=== PATIENT | male | born 1975 | race Caucasian/White ===

== ENCOUNTER 2025-02-23 05:20 | Inpatient (IN) | payer MEDICAID, SELFPAY ==
[2025-02-23] VITALS (27 sets, daily range): BP systolic 130–175; BP diastolic 71–118; PULSE 65–96; RESP 15–20; TEMP 35.9–37.2; O2SAT 94–100; BMI 31.3
--- NOTE | 2025-02-23 05:26 | EKG_ITS ---
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1975 Requested By: ED Temporary Provider Order Number: [id number] Reading MD: ED Temporary Provider Measurements Intervals [place] Rate: 89 P: 76 SC: 151 QRS: -49 QRSD: 107 T: 104 QT: 389 QTc: 474 Interpretive Statements SINUS RHYTHM POSSIBLE LEFT ATRIAL ENLARGEMENT [-0.1mV P-WAVE IN V1/V2] LEFT AXIS DEVIATION [QRS AXIS < -30] INCOMPLETE RIGHT BUNDLE BRANCH BLOCK [90+ ms QRS DURATION, TERMINAL R IN V1/V2, 40+ ms S IN I/aVL/V4/V5/V6] SEPTAL MYOCARDIAL INFARCTION , PROBABLY OLD [40+ ms Q WAVE IN V1/V2] ST DEVIATION AND MODERATE T-WAVE ABNORMALITY, CONSIDER LATERAL ISCHEMIA [-0.1+ mV T-WAVE IN I/aVL/V5/V6] Compared to ECG 07/29/2019 16:12:45 Left-axis deviation now present Incomplete right bundle-branch block now present Myocardial infarct finding now present Sinus tachycardia no longer present Left anterior fascicular block no longer present T-wave abnormality still present Possible ischemia still present /store/S0/[id number].pdf
--- NOTE | 2025-02-23 05:38 | PD.EDRME ---
Rapid Medical Screening Exam RME Arrival date/time: 02/23/25 05:20 Chief Complaint: Chest Pain Vital signs: Vital Signs Temperature 99.0 F 02/23/25 05:29 Pulse Rate 95 02/23/25 05:29 Respiratory Rate 17 02/23/25 05:29 Blood Pressure 130/78 02/23/25 05:29 Pulse Oximetry (%) 99 02/23/25 05:29 Oxygen Delivery Method Room Air 02/23/25 05:29 Pulse ox is 99% room air Vital signs reviewed by provider: Yes E Narrative: Patient tells me that he has had chest pain with shortness of breath that developed 3 days ago. Becoming progressively worse to a point where he could not get out of his bed and goes to the bathroom without developing shortness of breath
--- NOTE | 2025-02-23 05:40 | XR_ITS ---
Examination: PA lateral chest 2 views Technique: Upright PA lateral chest 2 views Date and time: February 23, 2025, 0545 hrs., Comparison December 05, 2020 Indications: Worsening chest pain shortness of breath over the last 3 days. Findings: No significant cardiac enlargement Mild vascular congestion. No lobar pneumonia or pulmonary edema Old fracture left clavicle Impression: No lobar pneumonia or pulmonary edema
[2025-02-23 06:07] LABS: Basophils # (Auto) 0.1 Thou/mm3 (0.0-0.2); Basophils % (Auto) 1 % (0-2.5); Eosinophils # (Auto) 0.5 Thou/mm3 (0.0-0.5); Eosinophils % (Auto) 5 % (0-10); Hematocrit 24.5 % (41.0-53.0); Immature Granulocytes Auto 0.03 Thou/mm3 (0.00-0.00); Lymphocytes # (Auto) 3.3 Thou/mm3 (1.0-4.8); Lymphocytes % (Auto) 32 % (10-50); Mean Corpuscular HGB Conc 30.6 g/dl (31.0-37.0); Mean Corpuscular Hemoglobin 26.6 pg (25.0-35.0); Mean Corpuscular Volume 87 fL (80-100); Monocytes # (Auto) 0.8 Thou/mm3 (0.0-0.8); Monocytes % (Auto) 8 % (0-12); Neutrophils # (Auto) 5.4 Thou/mm3 (1.8-7.7); Neutrophils % (Auto) 53 % (37-80); Nucleated Red Blood Cell # 0.00 Thou/mm3 (0.00-0.00); Nucleated Red Blood Cell % 0 /100 WBC (0); Platelet Count 463 Thou/mm3 (140-440); RDW Standard Deviation 48.1 fL (35.1-43.9); Red Blood Count 2.82 Miln/mm3 (4.50-5.90); White Blood Count 10.1 Thou/mm3 (3.8-10.6)
[2025-02-23 06:20] LABS: Hemoglobin 7.5 g/dL (13.5-16.0)
[2025-02-23 06:21] LABS: B-Type Natriuretic Peptide 102 pg/mL (0-100)
[2025-02-23 06:23] LABS: INR 1.0 (0.9-1.3); Partial Thromboplastin Time 25.9 Seconds (22.0-36.0); Prothrombin Time 11.1 Seconds (9.0-12.2)
[2025-02-23 06:26] LABS: Alanine Aminotransferase 22 U/L (10-49); Albumin, Serum 3.9 gm/dL (3.5-5.0); Albumin/Globulin Ratio 2.2 (1.2-2.2); Alkaline Phosphatase 96 U/L (46-116); Anion Gap 10 (7-16); Aspartate Amino Transferase 35 U/L (0-34); BUN/Creatinine Ratio 17 Ratio (12-20); Bilirubin,Total 0.4 mg/dL (0.3-1.2); Blood Urea Nitrogen 22 mg/dL (9-23); Calcium 9.0 mg/dL (8.3-10.6); Calcium (Corrected) 9.1 mg/dL (8.5-10.1); Carbon Dioxide 23.4 mMol/L (20.0-31.0); Chloride 109 mMol/L (98-107); Creatinine (Component) 1.3 mg/dL (0.6-1.3); Estimated Creatinine Clearance 73.0 mL/min (>60); Globulin 1.8 gm/dL (2.3-3.5); Glucose 132 mg/dL (74-106); LDH (Lactate Dehydrogenase) 261 U/L (120-246); Magnesium 2.2 mg/dL (1.6-2.6); Osmolality,Calculated 288 (275-295); Potassium 4.2 mMol/L (3.4-5.1); Sodium 142 mMol/L (136-145); Total Protein 5.7 gm/dL (5.7-8.2); eGFR > 60 See Note
[2025-02-23 06:27] LABS: Troponin I 0.503 ng/mL (0.0-0.045)
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
[2025-02-23 07:39] LABS: Collection Type, Urine Clean Catch
--- NOTE | 2025-02-23 07:44 | EKG_ITS ---
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1975 Requested By: Leo Cardenas Order Number: [id number] Reading MD: Leo Cardenas Measurements Intervals [place] Rate: 92 P: 63 [place]: 147 QRS: -36 QRSD: 121 T: 108 QT: 376 QTc: 466 Interpretive Statements SINUS RHYTHM LEFT AXIS DEVIATION [QRS AXIS < -30] LEFT VENTRICULAR HYPERTROPHY AND ST-T CHANGE [VOLTAGE CRITERIA PLUS ST/T ABNORMALITY] Compared to ECG 07/29/2019 16:12:45 Left-axis deviation now present Left ventricular hypertrophy now present ST (T wave) deviation now present Sinus tachycardia no longer present Left anterior fascicular block no longer present T-wave abnormality no longer present Possible ischemia no longer present /store/S0/[id number]/ecg/[id number].pdf
[2025-02-23 07:56] LABS: Bilirubin,Urine Negative (Negative); Blood,Urine Negative (Negative); Clarity,Urine Clear (Clear/Hazy); Color,Urine Lt-Yellow (Lt Yel-Yel); Culture Indicated,Urine Not Indicated; Glucose, Urine Negative (Negative); Ketones,Urine Negative (Negative); Leukocyte Esterase,Urine Negative (Negative); Nitrite,Urine Negative (Negative); PH,Urine 5.5 (5.0-7.0); Protein,Urine Trace (Neg - Trace); RBC,Urine 3 /hpf (0-3); Specific Gravity,Urine 1.031 (1.001-1.035); Squamous Epithelial Cell,Urine < 1 /hpf (0-5); Urobilinogen,Urine Negative mg/dL (0.0-1.0); WBC,Urine 1 /hpf (0-5)
[2025-02-23 08:12] LABS: Amphetamine/Methamp Scrn,U Positive (Negative); Barbiturate Screen,Urine Negative (Negative); Benzodiazepines Screen,Urine Negative (Negative); Benzoylecgonine Screen, Ur Negative (Negative); Fentanyl Screen,Urine Negative (Negative); Opiate Screen,Urine Negative (Negative); THC Screen,Urine Negative (Negative)
[2025-02-23 08:19] LABS: Ferritin 9 ng/mL (10.5-307.3); Iron 13 mcg/dL (65-175); Percent Iron Saturation 3 % (20-55); Total Iron Binding Capacity 333 mcg/dL (250-425); Unsaturated Iron Binding 320 (225-295)
--- NOTE | 2025-02-23 08:40 | PC.NURSE ---
SPOKE TO HECTOR JIMENEZ FOR SBAR REPORT; PER HECTOR JIMENEZ, WILL CALL YOU BACK. UNABLE TO GIVE SBAR REPORT AT THIS TIME.
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
--- NOTE | 2025-02-23 09:44 | PC.NURSE ---
Per Dr. gomez pt. can be on clear liquids. I will enter order. For blood transfusion order, there are three units ordered. Dr. Landin orders give 2 units first, hold third unit. I will enter order for this.
[2025-02-23 10:07] LABS: Folate > 24.00 ng/mL (>5.38); Vitamin B12 464 pg/mL (211-911)
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
--- NOTE | 2025-02-23 10:14 | PC.NURSE ---
pt. wants to review blood transfusion education pamphlet and then will agree or disagree to transfusion.
--- NOTE | 2025-02-23 13:06 | PC.NURSE ---
Per Dr. Ramirez hold LR until blood transfusion is complete.
--- NOTE | 2025-02-23 13:31 | ECHO_ITS ---
Transthoracic Echo Report Ht (in): 67 Wt (lb): 200 Exam Location: [id number] Status: Inpatient Strike Planning Applications: Lori Julien Indications: Procedure Performed: BP: 136 / 79 HR: 84 MEASUREMENTS (Male / Female) Normal Values 2D ECHO LV Diastolic Diameter PLAX 4.4 cm 4.2 - 5.9 / 3.9 - 5.3 cm LV Systolic Diameter PLAX 3.2 cm IVS Diastolic Thickness 1.2 cm 0.6 - 1.0 / 0.6 - 0.9 cm LVPW Diastolic Thickness 1.3 cm 0.6 - 1.0 / 0.6 - 0.9 cm LV Relative Wall Thickness 0.6 LVOT Diameter 1.8 cm LV Ejection Fraction MOD 2C 43.9 % LV Cardiac Index MOD 2C 2212.3 cm?/min?m? LV Ejection Fraction 2C AL 41.6 % LV Cardiac Index 2C AL 2089.2 cm?/min?m? LA Volume Index 34.3 cm?/m? 16 - 28 cm?/m? M-MODE AV Cusp Separation MM 1.4 cm DOPPLER AV Peak Velocity 147.0 cm/s AV Peak Gradient 8.6 mmHg AV Mean Gradient 6.0 mmHg AV Velocity Time Integral 25.5 cm LVOT Peak Velocity 140.0 cm/s LVOT Peak Gradient 7.8 mmHg LVOT Velocity Time Integral 23.8 cm LVOT Cardiac Index 2559.4 cm?/min?m? AV Area Cont Eq vti 2.5 cm? AV Area Cont Eq pk 2.6 cm? MV Area PHT 5.6 cm? Mitral E Point Velocity 112.0 cm/s Mitral A Point Velocity 69.4 cm/s Mitral E to A Ratio 1.6 LV E' Lateral Velocity 12.0 cm/s Mitral E to LV E' Lateral Ratio 9.3 LV E' Septal Velocity 6.6 cm/s Mitral E to LV E' Septal Ratio 16.9 TR Peak Velocity 156.5 cm/s TR Peak Gradient 9.8 mmHg PV Peak Velocity 89.6 cm/s PV Peak Gradient 3.2 mmHg FINDINGS Left Ventricle Mild LVH. Normal left ventricular size. Normal left ventricular diastolic filling pattern for age. The ejection fraction is visually estimated at 50-55%. Right Ventricle The right ventricle is normal in size and systolic function. Left Atrium The left atrium is normal by two-dimensional, color flow and Doppler imaging with no structural abnormalities, no thrombus formation present. Right Atrium The right atrium is normal by two-dimensional imaging, color flow and Doppler imaging with no structural abnormalities, no thrombus formation present. Atrial Septum The interatrial septum appears normal with no evidence of a shunt. Aorta The aorta is normal by two-dimensional, color flow and Doppler interrogation. Mitral Valve The mitral valve is normal by two-dimensional, color flow and Doppler interrogation. Trace to mild mitral regurgitation. Aortic Valve The aortic valve is trileaflet and normal by two-dimensional, color flow and Doppler interrogation. There is no significant aortic valve regurgitation. Tricuspid Valve The tricuspid valve is normal by two-dimensional, color flow and Doppler interrogation. There is trace tricuspid valve regurgitation. Pulmonic Valve The pulmonic valve is not well visualized. There is no significant pulmonic valve regurgitation. Vessels The pulmonary artery appears normal. The inferior vena cava pulmonary and hepatic veins appear normal. Pericardium The pericardium is normal by two-dimensional imaging. There is no significant pericardial effusion. CONCLUSIONS Indication: chest pain elevated troponins Mild LVH. Normal size and function. Ef estimated 50-55% The right ventricle is normal in size and systolic function. Trace mitral and trace tricuspid regurgitation noted. No significant change since the prior study of 12/05/2020 Angi Lofton (Electronically Signed) Final Date: 24 February 2025 14:28
[2025-02-23 14:29] LABS: Troponin I 0.562 ng/mL (0.0-0.045)
[2025-02-23] MEDS: RINGERS LACTATED 1000 ML 1,000 ML 85 ML IV (16:12)
[2025-02-23 16:42] LABS: Hematocrit 30.0 % (41.0-53.0); Hemoglobin 9.6 g/dL (13.5-16.0)
--- NOTE | 2025-02-23 16:44 | PC.NURSE ---
Dr. Ramirez states we will restart meds once pt. is no longer NPO. pt. asking about home meds and concerned as to why he is not receiving them. Pt. educated that he is NPO for procedure and meds will be resumed after EGD.
--- NOTE | 2025-02-23 16:45 | PC.NURSE ---
Dr. Ramirez aware of recent BP 147/77 and as high as 158/98. states I am okay with this pressure for now.
--- NOTE | 2025-02-23 18:10 | PC.NURSE ---
Called to Dr. Ramirez to confirm that Dr. Barrientos aware of consult and plans for EGD. Dr. Sauceda covering and states yes but I will contact Dr. Ramirez and confirm. Pt. is hungry and wanting to eat. Called to Endo department to enquire time of EGD but no answer.
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
[2025-02-23] MEDS: SODIUM CHLORIDE 0.9% 500 ML 500 ML 20 ML IV (20:35)
[2025-02-23 23:02] LABS: Troponin I 0.717 ng/mL (0.0-0.045)
[2025-02-24] VITALS (21 sets, daily range): BP systolic 128–176; BP diastolic 79–121; PULSE 62–143; RESP 10–97; TEMP 36.2–37.2; O2SAT 96–100; BMI 31.3
[2025-02-24] MEDS: NA SU/NAHCO3/KC/PEG (Golytely) 4,000 ML BTL 4000 ML PO (01:25)
--- NOTE | 2025-02-24 02:36 | PC.NURSE ---
[facility]25 from 0200 to 0235.
[2025-02-24] MEDS: RINGERS LACTATED 1000 ML 1,000 ML 85 ML IV (05:14)
[2025-02-24 06:00] LABS: Basophils # (Auto) 0.1 Thou/mm3 (0.0-0.2); Basophils % (Auto) 1 % (0-2.5); Eosinophils # (Auto) 0.8 Thou/mm3 (0.0-0.5); Eosinophils % (Auto) 9 % (0-10); Hematocrit 29.4 % (41.0-53.0); Hemoglobin 9.4 g/dL (13.5-16.0); Immature Granulocytes Auto 0.03 Thou/mm3 (0.00-0.00); Lymphocytes # (Auto) 2.5 Thou/mm3 (1.0-4.8); Lymphocytes % (Auto) 30 % (10-50); Mean Corpuscular HGB Conc 32.0 g/dl (31.0-37.0); Mean Corpuscular Hemoglobin 27.8 pg (25.0-35.0); Mean Corpuscular Volume 87 fL (80-100); Monocytes # (Auto) 0.8 Thou/mm3 (0.0-0.8); Monocytes % (Auto) 9 % (0-12); Neutrophils # (Auto) 4.3 Thou/mm3 (1.8-7.7); Neutrophils % (Auto) 51 % (37-80); Nucleated Red Blood Cell # 0.00 Thou/mm3 (0.00-0.00); Nucleated Red Blood Cell % 0 /100 WBC (0); Platelet Count 377 Thou/mm3 (140-440); RDW Standard Deviation 46.6 fL (35.1-43.9); Red Blood Count 3.38 Miln/mm3 (4.50-5.90); White Blood Count 8.5 Thou/mm3 (3.8-10.6)
[2025-02-24 06:40] LABS: Alanine Aminotransferase 18 U/L (10-49); Albumin, Serum 3.5 gm/dL (3.5-5.0); Albumin/Globulin Ratio 2.1 (1.2-2.2); Alkaline Phosphatase 93 U/L (46-116); Anion Gap 7 (7-16); Aspartate Amino Transferase 25 U/L (0-34); BUN/Creatinine Ratio 9 Ratio (12-20); Bilirubin,Total 0.9 mg/dL (0.3-1.2); Blood Urea Nitrogen 11 mg/dL (9-23); Calcium 8.5 mg/dL (8.3-10.6); Calcium (Corrected) 8.9 mg/dL (8.5-10.1); Carbon Dioxide 24.6 mMol/L (20.0-31.0); Chloride 108 mMol/L (98-107); Creatinine (Component) 1.2 mg/dL (0.6-1.3); Estimated Creatinine Clearance 79.1 mL/min (>60); Globulin 1.7 gm/dL (2.3-3.5); Glucose 196 mg/dL (74-106); Magnesium 2.0 mg/dL (1.6-2.6); Osmolality,Calculated 283 (275-295); Phosphorous 2.4 mg/dL (2.4-5.1); Potassium 4.2 mMol/L (3.4-5.1); Sodium 140 mMol/L (136-145); Total Protein 5.2 gm/dL (5.7-8.2); eGFR > 60 See Note
[2025-02-24 06:43] LABS: Troponin I 0.742 ng/mL (0.0-0.045)
--- NOTE | 2025-02-24 08:03 | ESPR_ITS ---
<Statement entered by Carlos Carvalho MD - 02/24/25 14:36> I saw and examined patient personally and supervised PGY 1 resident, Dr. Najera with formulating a management plan. I agree with the documentation with the exceptions as listed below. Mr. Almazan is a 49 year old gentleman with a history of CAD s/p stent x7, HTN, HLD, meth use disorder, who presents with cc of chest pain/pressure and dyspnea on exertion that limits his daily activities with symptomatic anemia, undergoing 2 unit prbc transfusion and admitted for ACS rule out NM and GI bleed for investigation. Problem list: 1. Acute blood loss anemia secondary to GI bleed for investigation s/p 2 unit PRBC infusion 2. NSTEMI type I 3. Stable angina 4. CAD s/p stents x 7 5. Primary hypertension 6. Hyperlipidemia 7. Methamphetamine use disorder Patient initially presented with chest pain and was incidentally found to have a Hb of 7.5 on admission. With regards to his chest pain his troponins were elevated 0.503 on admission, peaked at 0.742 now down trended to 0.637. Currently cardiology is awaiting results of colonoscopy which is planned for today before proceeding with cardiac catheterization. Tentatively scheduled for 02/26/2025. Since patient is currently undergoing bowel prep, placed labetalol 10 mg IV as needed for SBP >180. Also started on nitroglycerin SL as needed for angina. Patient's baseline Hb was between 13?14 from chart review. On admission Hb was 7.5 and patient received 2 units PRBCs after which stabilized at 9.4 today. Patient underwent EGD 02/06 which was negative for any clear source of hemorrhage. Currently undergoing bowel prep for colonoscopy today. Plan of care discussed with Attending Dr. Loretta Carvalho MD PGY 2 Disclaimer: This note was dictated by speech recognition. Minor errors in production line operator may be present due to voice recognition software. Documentation for date of: 02/24/25 Subjective Subjective Interval history: Mr. Almazan is a 49 year old gentleman with a history of CAD s/p stent x7, HTN, HLD, meth use disorder, who presents with cc of chest pain/pressure and dyspnea on exertion, found to have hgb of 7.5 and type II NSTEMI, admitted for GI bleed workup and blood transfusion. Cardiology was consulted for elevated troponins, felt this elevation was likely secondary to symptomatic anemia. The patient was transfused with 2 units PRBCs, and hgb improved to 9.6. EGD was negative for acute bleed, only showed some mild erythematous inflammation of the gastric antrum. 02/24 NAOE. Telemtry notable for bradycardia at 48 overnight. Patient states he feels asymptomatic currently as he lays in bed, but as soon as he walks to the bathroom, he feels chest tightness and pressure. He denies having ever done a screening colonoscopy in the past. VSS, Hgb stable at 9.4 s/p 2 units PRBCs. Troponins increased from 0.717 ---> 0.742. Plan for colonoscopy first, then angiogram after GI workup. On Golytely and CLD. Exam Vital Signs Temp Pulse Resp BP Pulse Ox O2 Del Method 97.9 F 87 16 136/79 H 96 Room Air 02/24/25 04:00 02/24/25 04:00 02/24/25 04:00 02/24/25 04:00 02/24/25 04:00 02/24/25 04:00 Narrative Exam General: patient appears stated age, sitting up in bed, moves spryly, no acute distress, HEENT: Mucosa moist. Pupils are equal Cardiovascular: Extremities warm and well perfused, regular rate and rhythm, ECHO visualized during exam, no gross hypokinesis appreciated. Respiratory: Clear to auscultation bilaterally without wheezes or crackles. Abdomen: Soft, nontender, not distended, Skin: Dry, no rashes or bruising Musculoskeletal: No gross injuries. Able to move all 4 extremities. Non edematous lower extremities. Neuro: Alert and oriented x3. No focal neuro deficits. Psych: Normal affect and mood Objective Labs 02/24/25 05:34 02/24/25 05:34 Labs: Laboratory Results - last 24 hr 02/23/25 02/23/25 02/23/25 05:59 07:30 08:16 WBC RBC Hgb Hct MCV MCH MCHC RDW Std Deviation Plt Count Neut % (Auto) Lymph % (Auto) [place] % (Auto) Eos % (Auto) Baso % (Auto) Neut # (Auto) Lymph # (Auto) [place] # (Auto) Eos # (Auto) Baso # (Auto) Immature Gran # (Auto) Absolute Nucleated RBC Immature Gran % Nucleated RBC % Sodium Potassium Chloride Carbon Dioxide Anion Gap BUN Creatinine Estim Creat Clear Calc eGFR BUN/Creatinine Ratio Glucose Calculated Osmolality Calcium Corrected Calcium Phosphorus Magnesium Iron 13 L TIBC 333 Iron Saturation 3 L Unsat Iron Binding 320 H Ferritin 9 L Total Bilirubin AST ALT Alkaline Phosphatase Troponin I Total Protein Albumin Globulin Albumin/Globulin Ratio Vitamin B12 464 Folate > 24.00 Ur Collection Type Clean Catch Urine Color Lt-Yellow Urine Clarity Clear Urine pH 5.5 Ur Specific [place] 1.031 Urine Protein Trace Urine Glucose (UA) Negative Urine Ketones Negative Urine Blood Negative Urine Nitrite Negative Urine Bilirubin Negative Urine Urobilinogen (Auto) Negative Ur Leukocyte Esterase Negative Urine RBC 3 Urine WBC 1 Ur Squamous Epith Cells < 1 Urine Bacteria None Ur Culture Indicated? Not Indicated Urine Opiates Screen Negative Urine Fentanyl Screen Negative Ur Barbiturates Screen Negative U Amphetamin/Meth Scrn Positive A U Benzodiazepines Scrn Negative U Cocaine Metab Screen Negative U Marijuana (THC) Screen Negative Blood Type O Positive Antibody Screen NEGATIVE Crossmatch See Detail Blood Bank Wristband ID Yes 02/23/25 02/23/25 02/23/25 13:34 16:30 22:14 WBC RBC Hgb 9.6 L D Hct 30.0 L MCV MCH MCHC RDW Std Deviation Plt Count Neut % (Auto) Lymph % (Auto) [place] % (Auto) Eos % (Auto) Baso % (Auto) Neut # (Auto) Lymph # (Auto) [place] # (Auto) Eos # (Auto) Baso # (Auto) Immature Gran # (Auto) Absolute Nucleated RBC Immature Gran % Nucleated RBC % Sodium Potassium Chloride Carbon Dioxide Anion Gap BUN Creatinine Estim Creat Clear Calc eGFR BUN/Creatinine Ratio Glucose Calculated Osmolality Calcium Corrected Calcium Phosphorus Magnesium Iron TIBC Iron Saturation Unsat Iron Binding Ferritin Total Bilirubin AST ALT Alkaline Phosphatase Troponin I 0.562 H* 0.717 H* Total Protein Albumin Globulin Albumin/Globulin Ratio Vitamin B12 Folate Ur Collection Type Urine Color Urine Clarity Urine pH Ur Specific [place] Urine Protein Urine Glucose (UA) Urine Ketones Urine Blood Urine Nitrite Urine Bilirubin Urine Urobilinogen (Auto) Ur Leukocyte Esterase Urine RBC Urine WBC Ur Squamous Epith Cells Urine Bacteria Ur Culture Indicated? Urine Opiates Screen Urine Fentanyl Screen Ur Barbiturates Screen U Amphetamin/Meth Scrn U Benzodiazepines Scrn U Cocaine Metab Screen U Marijuana (THC) Screen Blood Type Antibody Screen Crossmatch Blood Bank Wristband ID 02/24/25 05:34 WBC 8.5 RBC 3.38 L Hgb 9.4 L Hct 29.4 L MCV 87 MCH 27.8 MCHC 32.0 RDW Std Deviation 46.6 H Plt Count 377 D Neut % (Auto) 51 Lymph % (Auto) 30 [place] % (Auto) 9 Eos % (Auto) 9 Baso % (Auto) 1 Neut # (Auto) 4.3 Lymph # (Auto) 2.5 [place] # (Auto) 0.8 Eos # (Auto) 0.8 H Baso # (Auto) 0.1 Immature Gran # (Auto) 0.03 H Absolute Nucleated RBC 0.00 Immature Gran % 0 Nucleated RBC % 0 Sodium 140 Potassium 4.2 Chloride 108 H Carbon Dioxide 24.6 Anion Gap 7 BUN 11 Creatinine 1.2 Estim Creat Clear Calc 79.1 eGFR > 60 BUN/Creatinine Ratio 9 L Glucose 196 H D Calculated Osmolality 283 Calcium 8.5 Corrected Calcium 8.9 Phosphorus 2.4 Magnesium 2.0 Iron TIBC Iron Saturation Unsat Iron Binding Ferritin Total Bilirubin 0.9 D AST 25 ALT 18 Alkaline Phosphatase 93 Troponin I 0.742 H* Total Protein 5.2 L Albumin 3.5 Globulin 1.7 L Albumin/Globulin Ratio 2.1 Vitamin B12 Folate Ur Collection Type Urine Color Urine Clarity Urine pH Ur Specific [place] Urine Protein Urine Glucose (UA) Urine Ketones Urine Blood Urine Nitrite Urine Bilirubin Urine Urobilinogen (Auto) Ur Leukocyte Esterase Urine RBC Urine WBC Ur Squamous Epith Cells Urine Bacteria Ur Culture Indicated? Urine Opiates Screen Urine Fentanyl Screen Ur Barbiturates Screen U Amphetamin/Meth Scrn U Benzodiazepines Scrn U Cocaine Metab Screen U Marijuana (THC) Screen Blood Type Antibody Screen Crossmatch Blood Bank Wristband ID Quality Measures Quality Measures VTE prophylaxis Assessment & Plan Assessment Current Active Medications: Generic Name Dose Route Start Last Admin Trade Name Freq PRN Reason Stop Dose Admin Acetaminophen 650 mg 02/23/25 09:33 Acetaminophen 325 Mg Tablet PO 03/25/25 09:32 Q6H PRN Fever >101.5 Acetaminophen 650 mg 02/23/25 09:33 Acetaminophen 325 Mg Tablet PO 03/25/25 09:32 Q6H PRN PAIN SCALE 1-3 (mild Dextrose 25 ml 02/24/25 07:06 Dextrose 50%-Water Inj 50 Ml Syringe IV 03/26/25 07:05 Q15MIN PRN BG 50-70 responsive npo pt Dextrose 50 ml 02/24/25 07:06 Dextrose 50%-Water Inj 50 Ml Syringe IV 03/26/25 07:05 Q15MIN PRN BG <50 OR BG <70 & pt unresponsive Glucagon 1 mg 02/24/25 07:06 Glucagon Inj 1 Mg Vial IM Q15MIN PRN BG <70, and no IV access Lactated Ringer's 1,000 mls @ 85 mls/hr 02/23/25 12:36 02/24/25 05:14 Lactated Ringers IV 02/24/25 12:07 85 mls/hr .[id number] COLTON Administration Insulin Human Lispro 0 unit 02/24/25 12:00 Insulin Lispro (Admelog) 1 Unit/0.01 Ml Unit SC 03/26/25 11:59 Q6HR COLTON Protocol Metoprolol Succinate 50 mg 02/24/25 09:00 Metoprolol Succinate Xl 25 Mg Tabcr PO 03/26/25 08:59 QDAY COLTON Morphine Sulfate 1 mg 02/23/25 13:15 Morphine Sulf Inj 4 Mg/Ml Vial IVP 02/28/25 13:14 Q4HR PRN PAIN SCALE 4-10(Mod-Sev Ondansetron HCl 4 mg 02/23/25 09:33 Ondansetron Inj 2 Mg/Ml Inj 2 Ml IVP 03/25/25 09:32 Q6H PRN NAUSEA OR VOMITING Protocol Pantoprazole Sodium 40 mg 02/23/25 21:00 02/23/25 21:47 Pantoprazole Inj 40 Mg Vial IVP 03/25/25 20:59 40 mg BID COLTON Administration Plan Mr. Almazan is a 49 year old gentleman with a history of CAD s/p stent x7, HTN, HLD, meth use disorder, who presents with cc of chest pain/pressure and dyspnea on exertion that limits his daily activities with symptomatic anemia, undergoing 2 unit prbc transfusion and admitted for GI workup for possible upper gi bleed. Acute Blood Loss Anemia Anemia 2/2 ?lower GI bleed pt has a baseling hgb 14, but presented with hgb 7.5. no melena, no hematochezia, or hematemesis. FOBT positive, EGD negative for acute bleed. Hgb stable at 9.4 after 2Units PRBCs PLAN - GI consulted appreciate recs -Plan on colonoscopy, on golytely currently - Hgb goal>8 - transfuse if hgb <8 - post transfusion h and h - IVF LR 85 cc/hr - APAP prn for mild pain - Morphine 1 mg iv q4hr prn - pantoprazole 40 mg iv BID CAD s/p stents x7 NSTEMI Type I Stable Angina EKG with st depressions and chest pain with concern for stable vs unstable angina pt reports chest pressure and dyspnea on exertion, possible that his symptoms are 2/2 symptomatic anemia. However he is still experiencing anginal symptoms with exertion, possibly due to myocardial ischemia. PLAN - CARDS consulted, appreciate recs - plan for cardiac cath following GI workup, colonoscopy first. - hold ASA 81 - hold plavix - Pending TTE Results - troponin q8hr 0.503-->0.562--> 0.717 --> 0.742 Methamphetamine use disorder pt has history of meth use, and most recent use was 4 days agp - monitor for withdrawal - couseling on cessation HTN -home lisinopril 40 mg po qd, holding for now -home metoprolol 50 mg po qd -PRN labetolol for SBP > 180 HLD - home atorvastatin 80 mg po qhs, holding for now. Health Maintenance: DVT prophylaxis: SCDs Diet: CLD Rocha: No Lines: PIV CODE STATUS: Full code Disposition: Pending Colonoscopy and coronary angiogram. Patient's plan and care discussed with my attending, Dr. Burgos and my senior Dr. Deven Najera DO PGY-1 ([facility] Resident) Attending Provider Attestation/Addendum Sharmaine Trejo DO, attest that I was physically present for the salazar portions of the service and evaluated the patient with the resident and I reviewed and discussed the case with the resident and agree with the resident's findings and plans of care as documented above Patient seen and evaluated this AM. He states he has been feeling well following 2 units of pRBCs. Patient continues to have chest discomfort and shortness of breath with exertion. EGD was unremarkable and does not show any active bleeding. Patient currently undergoing colon prep. He continues to drink Golytely. Will f/u with colonoscopy results. tentatively scheduled for cardiac cath on Saturday.
--- NOTE | 2025-02-24 08:48 | PC.SS ---
SS follow up note; Cathlab today with Dr. Deleon.
[2025-02-24 08:55] LABS: Glucose Estimated Average 111 mg/dL (80-131); Hemoglobin A1C 5.5 % Hgb (4.8-6.0)
--- NOTE | 2025-02-24 09:05 | PC.SS ---
Patient Gutierrez Almazan is a 49 Year old male admitted for Chest Pain, GI Bleed. SS conducted an initial assessment to verify demographic information and discharge plan. Patient reports he lives at home with family. Patient reports his daughter, Sophie Almazan is his surrogate decision maker, [phone]. Patient is able to complete all ADL's independently and does not utilize any source of DME. Choice of pharmacy is [facility]. PCP is Yoni Cardenas. Patient will discharge home when medically cleared. Discharge plan: Home Next of Kin: Daughter, Sophie Almazan
[2025-02-24] MEDS: METOPROLOL SUCCINATE XL 25 MG TABCR 50 MG PO (09:13)
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
[2025-02-24 13:46] LABS: Troponin I 0.637 ng/mL (0.0-0.045)
--- NOTE | 2025-02-24 16:07 | PC.NURSE ---
Notified MD of patient's BP of 153/100, per MD he will review patient's condition and history prior to ordering additional BP meds.
[2025-02-24 18:49] LABS: Troponin I 0.595 ng/mL (0.0-0.045)
--- NOTE | 2025-02-24 19:54 | PC.NURSE ---
PT TAKEN FOR COLONOSCOPY.
--- NOTE | 2025-02-24 20:50 | SUR.PHASEI ---
pt received to [facility]. vss. breathing even and unlabored. arouses only to deep stimulation. denies pain and nausea. report from nurse gusman.
--- NOTE | 2025-02-24 21:10 | SUR.PHASEI ---
report called to nurse hipolito. vss. breathing even and unlabored. denies pain and nausea. tolerated po juice. pt states he needs to poop. encouraged to pass gas. transported to room via gurney.
--- NOTE | 2025-02-24 21:23 | PC.NURSE ---
PT BACK FROM ENDO, PT AWAKE AND ORIENTED X4, SLEEPY. PT DENIES PAIN, PASSING GAS AND LAYING ON LEFT SIDE. CALL LIGHT WITHIN REACH.
[2025-02-25] VITALS (29 sets, daily range): BP systolic 123–191; BP diastolic 66–121; PULSE 66–94; RESP 12–98; TEMP 36.1–37.1; O2SAT 96–100; BMI 31.4
[2025-02-25] MEDS: INSULIN LISPRO (AdmeLOG) 1 UNIT/0.01 ML UNIT SC (00:11)
[2025-02-25] MEDS: LABETALOL INJ 5 MG/ML VIAL 20 ML 10 MG IVP ×2 (04:52→12:42)
[2025-02-25 05:23] LABS: Basophils # (Auto) 0.1 Thou/mm3 (0.0-0.2); Basophils % (Auto) 1 % (0-2.5); Eosinophils # (Auto) 0.7 Thou/mm3 (0.0-0.5); Eosinophils % (Auto) 8 % (0-10); Hematocrit 33.5 % (41.0-53.0); Hemoglobin 10.5 g/dL (13.5-16.0); Immature Granulocytes Auto 0.04 Thou/mm3 (0.00-0.00); Lymphocytes # (Auto) 2.1 Thou/mm3 (1.0-4.8); Lymphocytes % (Auto) 24 % (10-50); Mean Corpuscular HGB Conc 31.3 g/dl (31.0-37.0); Mean Corpuscular Hemoglobin 27.0 pg (25.0-35.0); Mean Corpuscular Volume 86 fL (80-100); Monocytes # (Auto) 0.8 Thou/mm3 (0.0-0.8); Monocytes % (Auto) 9 % (0-12); Neutrophils # (Auto) 5.0 Thou/mm3 (1.8-7.7); Neutrophils % (Auto) 57 % (37-80); Nucleated Red Blood Cell # 0.00 Thou/mm3 (0.00-0.00); Nucleated Red Blood Cell % 0 /100 WBC (0); Platelet Count 442 Thou/mm3 (140-440); RDW Standard Deviation 47.0 fL (35.1-43.9); Red Blood Count 3.89 Miln/mm3 (4.50-5.90); White Blood Count 8.8 Thou/mm3 (3.8-10.6)
[2025-02-25 05:52] LABS: Alanine Aminotransferase 18 U/L (10-49); Albumin, Serum 4.0 gm/dL (3.5-5.0); Albumin/Globulin Ratio 2.1 (1.2-2.2); Alkaline Phosphatase 102 U/L (46-116); Anion Gap 8 (7-16); Aspartate Amino Transferase 21 U/L (0-34); BUN/Creatinine Ratio 7 Ratio (12-20); Bilirubin,Total 0.8 mg/dL (0.3-1.2); Blood Urea Nitrogen 7 mg/dL (9-23); Calcium 8.8 mg/dL (8.3-10.6); Calcium (Corrected) 8.8 mg/dL (8.5-10.1); Carbon Dioxide 26.8 mMol/L (20.0-31.0); Chloride 107 mMol/L (98-107); Creatinine (Component) 1.0 mg/dL (0.6-1.3); Estimated Creatinine Clearance 94.9 mL/min (>60); Globulin 1.9 gm/dL (2.3-3.5); Glucose 102 mg/dL (74-106); Magnesium 1.9 mg/dL (1.6-2.6); Osmolality,Calculated 281 (275-295); Phosphorous 3.1 mg/dL (2.4-5.1); Potassium 4.3 mMol/L (3.4-5.1); Sodium 142 mMol/L (136-145); Total Protein 5.9 gm/dL (5.7-8.2); eGFR > 60 See Note
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
--- NOTE | 2025-02-25 09:59 | ESPR_ITS ---
Documentation for date of: 02/25/25 No overnight events. Patient now s/p colonoscopy which was noted for internal hemorroids which may have contributed to acute blood loss anemia upon admission. Patient take to cath, stenosis noted on ramus intermedius proximal segment of 90% s/p PCI w/ stent, now total of 8 stents with this procedure and previous procedures. Patient loaded with Aspirin and Plavix. Continue Aspirin and Plavix. Continue BID Protonix. Plan to discharge within the next 24 hours. - The patient's plan was discussed with attending Dr. Loretta Samaniego MD PGY2 Internal Medicine Subjective Subjective Interval history: Mr. Almazan is a 49 year old gentleman with a history of CAD s/p stent x7, HTN, HLD, meth use disorder, who presents with cc of chest pain/pressure and dyspnea on exertion, found to have hgb of 7.5 and type II NSTEMI, admitted for GI bleed workup and blood transfusion. Cardiology was consulted for elevated troponins, felt this elevation was likely secondary to symptomatic anemia. The patient was transfused with 2 units PRBCs, and hgb improved to 9.6. EGD was negative for acute bleed, only showed some mild erythematous inflammation of the gastric antrum. 02/24 NAOE. Telemtry notable for bradycardia at 48 overnight. Patient states he feels asymptomatic currently as he lays in bed, but as soon as he walks to the bathroom, he feels chest tightness and pressure. He denies having ever done a screening colonoscopy in the past. VSS, Hgb stable at 9.4 s/p 2 units PRBCs. Troponins increased from 0.717 ---> 0.742. Plan for colonoscopy first, then angiogram after GI workup. On Golytely and CLD. 02/25 Patient examined at bedside, no acute overnight events. Colonoscopy yesterday was notable for internal hemorrhoid. Hgb remained stable at 10.4 without needing additional blood transfusions. His troponins downtrended yesterday from 0.742 to 0.595. Patient received cardiac cath with had a new stent placed, this is his 8th stent. Aspirin and plavix started by cardiology. Will observe overnight, likely discharge tomorrow. Exam Vital Signs Temp Pulse Resp BP Pulse Ox O2 Del Method O2 Flow Rate 98.8 F 66 12 176/100 H 100 Room Air 3 02/25/25 09:50 02/25/25 09:50 02/25/25 09:50 02/25/25 09:50 02/25/25 09:50 02/25/25 09:50 02/24/25 20:40 Narrative Exam General: Middle aged patient, no acute distress, sitting comfortably and conversational. HEENT: No JVD noted. Mucosa moist. Pupils are equal Cardiovascular: Normal S1 and S2. Regular rate and rhythm. Systolic flow murmur appreciated. Respiratory: Clear to auscultation bilaterally without wheezes or crackles. Abdomen: Soft, nontender, not distended, Skin: Dry, no rashes or bruising Musculoskeletal: No gross injuries. Able to move all 4 extremities. Non edematous lower extremities. Right radial bandage is in place without saturation or bleeding. Neuro: Alert and oriented x3. No focal neuro deficits. Psych: Normal affect and mood Objective Labs 02/26/25 06:30 02/26/25 06:30 Labs: Laboratory Results - last 24 hr 02/24/25 02/24/25 02/25/25 12:46 17:46 04:34 WBC 8.8 RBC 3.89 L Hgb 10.5 L Hct 33.5 L MCV 86 MCH 27.0 MCHC 31.3 RDW Std Deviation 47.0 H Plt Count 442 H D Neut % (Auto) 57 Lymph % (Auto) 24 [place] % (Auto) 9 Eos % (Auto) 8 Baso % (Auto) 1 Neut # (Auto) 5.0 Lymph # (Auto) 2.1 [place] # (Auto) 0.8 Eos # (Auto) 0.7 H Baso # (Auto) 0.1 Immature Gran # (Auto) 0.04 H Absolute Nucleated RBC 0.00 Immature Gran % 1 H Nucleated RBC % 0 Sodium 142 Potassium 4.3 Chloride 107 Carbon Dioxide 26.8 Anion Gap 8 BUN 7 L Creatinine 1.0 Estim Creat Clear Calc 94.9 eGFR > 60 BUN/Creatinine Ratio 7 L Glucose 102 D Calculated Osmolality 281 Calcium 8.8 Corrected Calcium 8.8 Phosphorus 3.1 Magnesium 1.9 Total Bilirubin 0.8 AST 21 ALT 18 Alkaline Phosphatase 102 Troponin I 0.637 H* 0.595 H* Total Protein 5.9 Albumin 4.0 D Globulin 1.9 L Albumin/Globulin Ratio 2.1 Quality Measures Quality Measures VTE prophylaxis Assessment & Plan Assessment Current Active Medications: Generic Name Dose Route Start Last Admin Trade Name Freq PRN Reason Stop Dose Admin Acetaminophen 650 mg 02/23/25 09:33 Acetaminophen 325 Mg Tablet PO 03/25/25 09:32 Q6H PRN Fever >101.5 Acetaminophen 650 mg 02/23/25 09:33 Acetaminophen 325 Mg Tablet PO 03/25/25 09:32 Q6H PRN PAIN SCALE 1-3 (mild Dextrose 25 ml 02/24/25 07:06 Dextrose 50%-Water Inj 50 Ml Syringe IV 03/26/25 07:05 Q15MIN PRN BG 50-70 responsive npo pt Dextrose 50 ml 02/24/25 07:06 Dextrose 50%-Water Inj 50 Ml Syringe IV 03/26/25 07:05 Q15MIN PRN BG <50 OR BG <70 & pt unresponsive Glucagon 1 mg 02/24/25 07:06 Glucagon Inj 1 Mg Vial IM Q15MIN PRN BG <70, and no IV access Insulin Human Lispro 0 unit 02/24/25 12:00 02/25/25 05:08 Insulin Lispro (Admelog) 1 Unit/0.01 Ml Unit SC 03/26/25 11:59 Not Given Q6HR [facility] Protocol Labetalol HCl 10 mg 02/24/25 11:31 02/25/25 04:52 Labetalol Inj 5 Mg/Ml Vial 20 Ml IVP 10 mg Q10MIN PRN Administration SBP > 180 Lisinopril 40 mg 02/25/25 09:00 Lisinopril 20 Mg Tablet PO 03/27/25 08:59 QDAY [facility] Metoprolol Succinate 50 mg 02/24/25 09:00 02/24/25 09:13 Metoprolol Succinate Xl 25 Mg Tabcr PO 03/26/25 08:59 50 mg QDAY [facility] Administration Morphine Sulfate 1 mg 02/23/25 13:15 Morphine Sulf Inj 4 Mg/Ml Vial IVP 02/28/25 13:14 Q4HR PRN PAIN SCALE 4-10(Mod-Sev Nitroglycerin 0.4 mg 02/24/25 14:33 Nitroglycerin 0.4 Mg Subl Btl #25 SL Q5MIN PRN CHEST PAIN Ondansetron HCl 4 mg 02/23/25 09:33 Ondansetron Inj 2 Mg/Ml Inj 2 Ml IVP 03/25/25 09:32 Q6H PRN NAUSEA OR VOMITING Protocol Pantoprazole Sodium 40 mg 02/23/25 21:00 02/24/25 21:30 Pantoprazole Inj 40 Mg Vial IVP 03/25/25 20:59 40 mg BID COLTON Administration Plan Mr. Almazan is a 49 year old gentleman with a history of CAD s/p stent x7, HTN, HLD, meth use disorder, who presents with cc of chest pain/pressure and dyspnea on exertion that limits his daily activities with symptomatic anemia, undergoing 2 unit prbc transfusion and admitted for GI workup for possible upper gi bleed. Acute Blood Loss Anemia Anemia 2/2 lower GI bleed - Resolved internal hemorrhoid pt has a baseling hgb 14, but presented with hgb 7.5. no melena, no hematochezia, or hematemesis. FOBT positive, EGD negative for acute bleed. Hgb stable at 9.4 after 2Units PRBCs Colonoscopy notable for internal hemorrhoid. Hgb remains stable at 10.5 PLAN - GI consulted appreciate recs - Hgb goal>8 - transfuse if hgb <8 - APAP prn for mild pain - Morphine 1 mg iv q4hr prn - pantoprazole 40 mg iv BID CAD s/p stents x7 + 1 on 02/25 NSTEMI Type I Stable Angina EKG with st depressions and chest pain with concern for stable vs unstable angina pt reports chest pressure and dyspnea on exertion, possible that his symptoms are 2/2 symptomatic anemia. However he is still experiencing anginal symptoms with exertion, possibly due to myocardial ischemia. TTE showed EF 50-55%, mild LVH, Normal size and function of left ventricle. No significant change from ECHO done in 2020. Coronary angiogram done today demonstrated 75% stenosis and stent was placed. Patient was restarted on aspirin and plavix. Per discussion with cardiology, patient will likely be ready for discharge tomorrow from a cardiology standpoint. PLAN - CARDS consulted, appreciate recs - cardiac cath done pending final results. - troponin q8hr Now downtrending, 0.503-->0.562--> 0.717 --> 0.742--> 0.637 --> 0.595 - Observation overnight -Continue aspirin and plavix. Methamphetamine use disorder pt has history of meth use, and most recent use was 4 days agp - monitor for withdrawal - couseling on cessation HTN Progressively more hypertensive during his stay. -home lisinopril 40 mg po qd, started. -home metoprolol 50 mg po qd -PRN labetolol for SBP > 180 HLD - home atorvastatin 80 mg po qhs, holding for now. Health Maintenance: DVT prophylaxis: SCDs Diet: Cardiac diet Rocha: No Lines: PIV CODE STATUS: Full code Disposition: Observation post stent placement Attending Provider Attestation/Addendum Sharmaine Trejo DO, attest that I was physically present for the salazar portions of the service and evaluated the patient with the resident and I reviewed and discussed the case with the resident and agree with the resident's findings and plans of care as documented above Patient seen and evaluated this afternoon following return to room from cardiac cath. Patient tolerated procedure well. Per nursing, patient had one stent placed in coronary ramus. Will restart DAPT. F/u with operative note. Will monitor overnight and anticipate DC within next 24h.
[2025-02-25] MEDS: hydrALAZINE INJ 20 MG/ML VIAL 10 MG IVP (10:23)
[2025-02-25 10:36] LABS: ACT (CATH LAB ONLY) 214.0 Seconds (89-169)
[2025-02-25] MEDS: METOPROLOL SUCCINATE XL 25 MG TABCR 50 MG PO (10:39)
[2025-02-25] MEDS: Magnesium Sulfate 2 GM Ivpb 2 GM/50 ML BAG IV (10:40)
--- NOTE | 2025-02-25 16:23 | ESOP_ITS ---
RE: MERRITT ENCINAS : 1975 PROCEDURES PERFORMED: 1. Emergency diagnostic left heart cardiac catheterization, selective coronary angiogram, left ventricular angiogram, CPT 72466. 2. Emergency PCI, primary angioplasty, stent placement of the ramus intermedius, placement of drug-eluting stent 3.0 x 12 mm Synergy stent with diagnosis of acute sjh-EO-xkigndj elevation myocardial infarction, CPT 08591. 3. Ultrasound-guided access of right radial artery. 4. Conscious sedation for 1 hour duration. DIAGNOSES: 1. Coronary artery disease. 2. Acute phq-OK-hgzgdtx elevation myocardial infarction. 3. History of multivessel stent placement. HISTORY AND INDICATIONS: The patient is a 49-year-old male with history of CAD, status post multivessel stent placement, total 7 stents placed in various arteries of ramus intermedius, circumflex and LAD, doing well until recently. Last 2 weeks had progressive shortness of breath, chest tightness on minimal exertion. He came to the hospital with severe chest pain, shortness of breath, and bilateral arm discomfort and was found to have acute myocardial infarction based on 0.7 troponin levels. He also had anemia, possible bleeding and GI workup showed that there is no active bleeding. The patient had hemorrhoids most likely because of bleeding and no gastric ulcer. The patient was recommended to proceed with PCI and coronary angiogram since the patient does not have any active bleeding. Hemoglobin remains stable. DESCRIPTION OF PROCEDURE: The patient was brought to the cardiac catheterization laboratory. He was given 2 mg of Versed and 100 mcg of fentanyl for conscious sedation. Ultrasound-guided access was used to perform radial access. Radial access performed radial artery puncture with micropuncture technique and 6-[place]err[place]ian Glidesheath was introduced. Selective right and left coronary angiogram, left heart catheterization, left ventricular angiogram were performed by TIG-4 5-[place]serr[place]ian diagnostic catheter. Diagnostic procedure showed the following findings: Left heart catheterization showed LV pressure of 105/10 aorta pressure 105/70 no gradient across aortic valve. Left ventricle angiogram showed normal left and wall motion ejection fraction 50 to 50%. Right coronary artery is large and dominant, giving off PDA and posterolateral branches. There are mild irregularities. No significant stenosis. Left coronary system: Left main coronary artery is normal. Left anterior descending artery showed multiple stents in mid, distal and proximal segment. All of them are patent. There is a stent in the mid segment of the ramus intermedius, which is patent. Circumflex artery also showed no significant obstructive coronary artery disease. Ramus intermedius, however, showed evidence of 80%-90% stenosis, a discrete lesion in 2 views and appears to be the culprit lesion causing his symptoms, hence proceeded with PCI and stent placement. The patient was given IV heparin 3000 units in the radial cocktail. Additional heparin was given. A total of 3000 units plus another 2000 units, total of 8000 units heparin was given. Proceeded with PCI and stent placement. A 6-[place]err[place]ian EBU 3.5 guiding catheter was used to cannulate the left main coronary artery. A 0.014 Runthrough guidewire was used to cross the lesion successfully. Direct stenting was performed using a 3.0 x 12 mm Synergy drug-eluting stent, which was deployed successfully and 12 inflations were performed. Final angiogram showed widely patent ramus intermedius with no residual stenosis. TR band was applied. Hemostasis was secured. The patient received aspirin and Plavix loading dose of 300 mg. The patient will be continued on aspirin and Plavix. He can be discharged home tomorrow if he has no further issues. SUMMARY OF FINDINGS: 1. Widely patent stents involving left anterior descending artery and previously stented segments. 2. De pat 90% stenosis in the ramus intermedius proximal segment. Underwent successful PCI and stent placement. A 3.0 x 12 mm Synergy stent was placed successfully. Preprocedure stenosis 90%, postprocedure 0%. Preprocedure CORIN flow 3, postprocedure CORIN flow 3. 3. Normal hemodynamics preserved left ventricular systolic function. COMPLICATIONS: None. DT: 15:11:59 TT: 16:22:00 Ref: [id number] - TID: [id number] [facility]
--- NOTE | 2025-02-25 18:48 | PD.IMPROG ---
Documentation for date of: 02/25/25 Subjective Subjective Interval history: Hemoglobin hematocrit 10.5 and 33.5 Exam Vital Signs Temp Pulse Resp BP Pulse Ox O2 Del Method O2 Flow Rate 97.3 F 70 18 123/75 98 Room Air 3 02/25/25 15:53 02/25/25 16:00 02/25/25 15:53 02/25/25 15:53 02/25/25 15:53 02/25/25 15:53 02/25/25 11:00 Objective Labs 02/25/25 04:34 02/25/25 04:34 Labs: Laboratory Results - last 24 hr 02/24/25 02/25/25 02/25/25 17:46 04:34 09:28 WBC 8.8 RBC 3.89 L Hgb 10.5 L Hct 33.5 L MCV 86 MCH 27.0 MCHC 31.3 RDW Std Deviation 47.0 H Plt Count 442 H D Neut % (Auto) 57 Lymph % (Auto) 24 [place] % (Auto) 9 Eos % (Auto) 8 Baso % (Auto) 1 Neut # (Auto) 5.0 Lymph # (Auto) 2.1 [place] # (Auto) 0.8 Eos # (Auto) 0.7 H Baso # (Auto) 0.1 Immature Gran # (Auto) 0.04 H Absolute Nucleated RBC 0.00 Immature Gran % 1 H Nucleated RBC % 0 Activated Clotting Time 214.0 H Sodium 142 Potassium 4.3 Chloride 107 Carbon Dioxide 26.8 Anion Gap 8 BUN 7 L Creatinine 1.0 Estim Creat Clear Calc 94.9 eGFR > 60 BUN/Creatinine Ratio 7 L Glucose 102 D Calculated Osmolality 281 Calcium 8.8 Corrected Calcium 8.8 Phosphorus 3.1 Magnesium 1.9 Total Bilirubin 0.8 AST 21 ALT 18 Alkaline Phosphatase 102 Troponin I 0.595 H* Total Protein 5.9 Albumin 4.0 D Globulin 1.9 L Albumin/Globulin Ratio 2.1 Impressions Impression: Gastritis Internal hemorrhoids Status post cardiac catheterization today with PCI Continue current management patient can be fully anticoagulated Assessment & Plan A&P Narrative # Occult GI bleeding leading to acute posthemorrhagic anemia and NSTEMI # Coronary artery disease status post Post PTCA # Hyperlipidemia # Essential hypertension Plan N.p.o. Consent obtained for fiberoptic esophagogastroduodenoscopy with possible biopsy possible therapeutic intervention under intravenous moderate sedation If EGD is negative will prep the patient for colonoscopy Intravenous Protonix 40 mg once a day daily Serial CBC Will follow the patient Thank you very much for the opportunity to participate in the care of this patient Time Spent With Patient Time: Total time spent is greater than 50% in coordination of care (as documented) at patient's floor/unit and/or counseling patient:
[2025-02-26] VITALS (10 sets, daily range): BP systolic 128–189; BP diastolic 85–107; PULSE 64–92; RESP 18–98; TEMP 36.1–36.8; O2SAT 97–100; BMI 31.6
[2025-02-26] MEDS: LABETALOL INJ 5 MG/ML VIAL 20 ML 10 MG IVP (04:51)
[2025-02-26 07:18] LABS: Basophils # (Auto) 0.0 Thou/mm3 (0.0-0.2); Basophils % (Auto) 0 % (0-2.5); Eosinophils # (Auto) 0.7 Thou/mm3 (0.0-0.5); Eosinophils % (Auto) 8 % (0-10); Hematocrit 32.8 % (41.0-53.0); Hemoglobin 10.4 g/dL (13.5-16.0); Immature Granulocytes Auto 0.03 Thou/mm3 (0.00-0.00); Lymphocytes # (Auto) 1.9 Thou/mm3 (1.0-4.8); Lymphocytes % (Auto) 21 % (10-50); Mean Corpuscular HGB Conc 31.7 g/dl (31.0-37.0); Mean Corpuscular Hemoglobin 27.0 pg (25.0-35.0); Mean Corpuscular Volume 85 fL (80-100); Monocytes # (Auto) 0.8 Thou/mm3 (0.0-0.8); Monocytes % (Auto) 8 % (0-12); Neutrophils # (Auto) 5.5 Thou/mm3 (1.8-7.7); Neutrophils % (Auto) 62 % (37-80); Nucleated Red Blood Cell # 0.00 Thou/mm3 (0.00-0.00); Nucleated Red Blood Cell % 0 /100 WBC (0); Platelet Count 456 Thou/mm3 (140-440); RDW Standard Deviation 46.6 fL (35.1-43.9); Red Blood Count 3.85 Miln/mm3 (4.50-5.90); White Blood Count 9.0 Thou/mm3 (3.8-10.6)
[2025-02-26 07:37] LABS: Alanine Aminotransferase 16 U/L (10-49); Albumin, Serum 3.7 gm/dL (3.5-5.0); Albumin/Globulin Ratio 2.1 (1.2-2.2); Alkaline Phosphatase 102 U/L (46-116); Anion Gap 7 (7-16); Aspartate Amino Transferase 20 U/L (0-34); BUN/Creatinine Ratio 15 Ratio (12-20); Bilirubin,Total 0.3 mg/dL (0.3-1.2); Blood Urea Nitrogen 16 mg/dL (9-23); Calcium 8.5 mg/dL (8.3-10.6); Calcium (Corrected) 8.7 mg/dL (8.5-10.1); Carbon Dioxide 26.4 mMol/L (20.0-31.0); Chloride 108 mMol/L (98-107); Creatinine (Component) 1.1 mg/dL (0.6-1.3); Estimated Creatinine Clearance 85.1 mL/min (>60); Globulin 1.8 gm/dL (2.3-3.5); Glucose 155 mg/dL (74-106); Magnesium 2.2 mg/dL (1.6-2.6); Osmolality,Calculated 285 (275-295); Phosphorous 3.2 mg/dL (2.4-5.1); Potassium 4.2 mMol/L (3.4-5.1); Sodium 141 mMol/L (136-145); Total Protein 5.5 gm/dL (5.7-8.2); eGFR > 60 See Note
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
[2025-02-26] MEDS: METOPROLOL SUCCINATE XL 25 MG TABCR 50 MG PO (08:04)
[2025-02-26] MEDS: ASPIRIN 81 MG CHEW PO (08:04)
[2025-02-26] MEDS: CLOPIDOGREL BISULFATE 75 MG TABLET PO (08:05)
--- NOTE | 2025-02-26 11:57 | ESDS_ITS ---
<Statement entered by Carlos Carvalho MD - 02/26/25 15:20> I saw and examined patient personally and supervised PGY 1 resident, Dr. Najera with formulating a management plan. I agree with the documentation with the exceptions as listed below. Patient was admitted for ACS and GI bleed workup. EGD was negative for any acute source of bleeding, colonoscopy revealed internal hemorrhoids. Patient also underwent cardiac catheterization which showed: 1. Widely patent stents involving left anterior descending artery and previously stented segments. 2. De pat 90% stenosis in the ramus intermedius proximal segment. Underwent successful PCI and stent placement. A 3.0 x 12 mm Synergy stent was placed successfully. Preprocedure stenosis 90%, postprocedure 0%. Preprocedure CORIN flow 3, postprocedure CORIN flow 3. 3. Normal hemodynamics preserved left ventricular systolic function. Postcardiac catheterization patient remained asymptomatic with no chest pain and hemodynamically stable. Patient will be discharged with DAPT and follow-up with wood fence erector Dr. Jostin Deleon within 1 week of discharge. Plan of care discussed with Attending Dr. Jasper Carvalho MD PGY 2 Disclaimer: This note was dictated by speech recognition. Minor errors in chess instructor may be present due to voice recognition software. Planned Discharge Date 02/26/25 DS: Providers Provider Date of admission: 02/23/25 08:32 Primary care physician: Yoni Cardenas MD Admitting Provider: Sharmaine Burgos DO Attending Provider on Admission: Blaze Hutchinson DO Consults: 02/23/25 07:58 Consult to Gastroenterology Routine Comment: Consulting Provider: Janet Barrientos 02/23/25 09:36 Consult to Cardiology Routine Comment: Consulting Provider: Tim Deleon Attending Provider on DC: Blaze Hutchinson DO Discharging Provider: Blaze Hutchinson DO DS: Diagnosis Problem List Completed Was Problem List Reviewed/Reconciled?: Yes Hospital Course Hospital Course Hospital course: Mr. Almazan is a 49 year old gentleman with a history of CAD s/p stent x7, HTN, HLD, meth use disorder, who presents with cc of chest pain/pressure and dyspnea on exertion that limits his daily activities with symptomatic anemia, undergoing 2 unit prbc transfusion and admitted for GI workup for possible upper gi bleed, and NSTEMI. During his hospital course his chest symptoms were felt to be consistent with stable angina and likely secondary to acute blood loss anemia. Upper endoscopy was done and was negative for acute bleed. Colonoscopy was nota ble for internal hemorrhoids that reduced spontaneously. Throughout this workup, the patient's hgb remained stable without needing additional blood transfusion, however he still was experiencing exertional chest pain that got better with rest. On 02/25, patient was taken the [employer] stores, was found to have: 1. Widely patent stents involving left anterior descending artery and previously stented segments. 2. De pat 90% stenosis in the ramus intermedius proximal segment. Underwent successful PCI and stent placement. A 3.0 x 12 mm Synergy stent was placed successfully. Preprocedure stenosis 90%, postprocedure 0%. Preprocedure CORIN flow 3, postprocedure CORIN flow 3. 3. Normal hemodynamics preserved left ventricular systolic function. Patient remained stable overnight without persistent symptoms or arrhythmias on telemetry, was cleared from a cardiology standpoint after 24 hours. Patient was cleared medically and subsequently discharged in stable condition. Discharge Recommendations: Instructions: -Continue Aspirin and Plavix as new stent was added during this hospital visit. -Please follow up with cardiology, Dr. Deleon, upon discharge -Continue all medication as prescribed. -Please follow up with your primary care provider within one week of discharge -If your symptoms worsen,please seek immediate medical attention and return to your nearest emergency room -If you do not have a primary care provider, you may follow up at the [facility] at [facility] [address], [place] [address], Discharge Diagnoses: Acute Blood Loss Anemia Anemia 2/2 lower GI bleed - Resolved internal hemorrhoid CAD s/p stents x7 + 1 on 02/25 NSTEMI Type I Stable Angina HTN HLD Patient's plan and care discussed with my attending, Dr. Hutchinson and my senior, Dr Carvalho. Kel Najera DO PGY-1 ([facility] Resident) Time Spent with Patient Time attestation: Total time spent providing and/or coordinating discharge services: Time spent: Greater than 30 minutes (37) Exam Vital Signs Temp Pulse Resp BP Pulse Ox O2 Del Method O2 Flow Rate 97.9 F 75 18 183/95 H 98 Room Air 3 02/26/25 08:00 02/26/25 08:05 02/26/25 08:00 02/26/25 08:05 02/26/25 08:00 02/26/25 08:00 02/25/25 11:00 Narrative Exam General: Middle aged patient, no acute distress, sitting comfortably and conversational. HEENT: No JVD noted. Mucosa moist. Pupils are equal Cardiovascular: Normal S1 and S2. Regular rate and rhythm. No murmur appreciated on ausculation today. Respiratory: Clear to auscultation bilaterally without wheezes or crackles. Abdomen: Soft, nontender, not distended, Skin: Dry, no rashes or bruising Musculoskeletal: No gross injuries. Able to move all 4 extremities. Non edematous lower extremities. Right radial bandage is in place without saturation or bleeding. Neuro: Alert and oriented x3. No focal neuro deficits. Psych: Normal affect and mood Discharge Plan Plan Patient Disposition: HOME (Self Care) Patient condition on transfer: Stable Care Plan Goals: Instructions: -Continue Aspirin and Plavix as new stent was added during this hospital visit. -Please follow up with cardiology, Dr. Deleon, upon discharge -Continue all medication as prescribed. -Please follow up with your primary care provider within one week of discharge -If your symptoms worsen,please seek immediate medical attention and return to your nearest emergency room -If you do not have a primary care provider, you may follow up at the [facility] at [address] [place] [address] [address], [place] [address], Prescriptions/Referrals Prescriptions/Med Rec: Continued clopidogrel 75 mg tablet 75 mg PO DAILY lisinopril 20 mg tablet 40 mg PO QDAY aspirin [Adult Aspirin Regimen] 81 mg tablet,delayed release (DR/EC) 81 mg PO QDAY Qty: 30 0RF atorvastatin 20 mg Tablet 80 mg PO HS Qty: 30 0RF metoprolol succinate 50 mg tablet extended release 24 hr 50 mg PO QDAY Patient Comments: TAKE 1 TABLET BY MOUTH EVERY DAY FOR 7 DAYS Referrals: Yoni Cardenas MD [Primary Care Provider, Family Practice] Patient/Caregiver Discharge Instructions Education Materials: Anemia, CAD Print Language: Dutch Stand Alone Forms: Joann Award Info., Patient Portal Info Letter Discharge Order Discharge Orders: Discharge (Routine); Ordered 02/26/25 Ordered By: Carlos Carvalho Quality Discharge Quality Measures VTE prophylaxis Attestestation MD Attestation I have discussed and was present for the essential components of the discharge history, physical examination, diagnosis, and discharge treatment plan with the resident. I agree with the patient's discharge care as documented by the resident and amended herein by me. Reyes Hutchinson, DO. The patient understood all discharge instructions, all questions were answered satisfactorily. The patient was instructed to return to the Emergency Department is symptoms worsened or persisted. Patient was stable, afebrile, tolerating p.o. intake and ambulatory at time of discharge home. Patient was also counseled on his drug use and he understands. Although this document has been carefully reviewed, there may still be some phonetic and other typographical errors. These errors are purely grammatical due to imperfections in the software program and should not be construed in any way to compromise the substance of the patient's medical care during this visit.
--- NOTE | 2025-02-26 16:52 | PD.IMPROG ---
Documentation for date of: 02/26/25 Subjective Subjective Interval history: Late entry for the note case discussed with internal medicine team okay to discharge No need for GI follow-up Exam Vital Signs Temp Pulse Resp BP Pulse Ox O2 Del Method O2 Flow Rate 97.4 F 74 18 189/99 H 97 Room Air 3 02/26/25 12:00 02/26/25 12:05 02/26/25 12:05 02/26/25 12:00 02/26/25 12:00 02/26/25 12:00 02/25/25 11:00 Objective Labs 02/26/25 06:30 02/26/25 06:30 Labs: Laboratory Results - last 24 hr 02/23/25 02/26/25 08:16 06:30 WBC 9.0 RBC 3.85 L Hgb 10.4 L Hct 32.8 L MCV 85 MCH 27.0 MCHC 31.7 RDW Std Deviation 46.6 H Plt Count 456 H Neut % (Auto) 62 Lymph % (Auto) 21 [place] % (Auto) 8 Eos % (Auto) 8 Baso % (Auto) 0 Neut # (Auto) 5.5 Lymph # (Auto) 1.9 [place] # (Auto) 0.8 Eos # (Auto) 0.7 H Baso # (Auto) 0.0 Immature Gran # (Auto) 0.03 H Absolute Nucleated RBC 0.00 Immature Gran % 0 Nucleated RBC % 0 Sodium 141 Potassium 4.2 Chloride 108 H Carbon Dioxide 26.4 Anion Gap 7 BUN 16 Creatinine 1.1 Estim Creat Clear Calc 85.1 eGFR > 60 BUN/Creatinine Ratio 15 Glucose 155 H D Calculated Osmolality 285 Calcium 8.5 Corrected Calcium 8.7 Phosphorus 3.2 Magnesium 2.2 Total Bilirubin 0.3 D AST 20 ALT 16 Alkaline Phosphatase 102 Total Protein 5.5 L Albumin 3.7 Globulin 1.8 L Albumin/Globulin Ratio 2.1 Crossmatch See Detail Impressions Impression: Anemia blood loss stable Coronary artery status post PCI Plan as in the HPI Assessment & Plan A&P Narrative # Occult GI bleeding leading to acute posthemorrhagic anemia and NSTEMI # Coronary artery disease status post Post PTCA # Hyperlipidemia # Essential hypertension Plan N.p.o. Consent obtained for fiberoptic esophagogastroduodenoscopy with possible biopsy possible therapeutic intervention under intravenous moderate sedation If EGD is negative will prep the patient for colonoscopy Intravenous Protonix 40 mg once a day daily Serial CBC Will follow the patient Thank you very much for the opportunity to participate in the care of this patient Time Spent With Patient Time: Total time spent is greater than 50% in coordination of care (as documented) at patient's floor/unit and/or counseling patient:
== END 2025-02-26 14:28 | disposition home or self-care (01) | DRG 174 ==
LOC: SERX 07:26 → SERHOLD 08:46 → S2NX 09:12 → S3NX 02-26 05:26
PROVIDERS: Internal Medicine Cardiovascular Disease; Physician Assistant; Specialist; Student in an Organized Health Care Education/Training Program; Admitting Provider Internal Medicine; Emergency Provider Family Medicine; PCP Family Medicine; Visit Provider Student in an Organized Health Care Education/Training Program
PROC: 0DJD8ZZ Inspection of Lower Intestinal Tract, Via Natural or Artificial Opening Endoscopic (ICD-10-PCS; CPT 43239; principal; 2025-02-23 20:30)
DX: I21.4 Non-ST elevation (NSTEMI) myocardial infarction (principal); E78.5 Hyperlipidemia, unspecified; I10 Essential (primary) hypertension; F15.90 Other stimulant use, unspecified, uncomplicated; K29.71 Gastritis, unspecified, with bleeding; D64.9 Anemia, unspecified; I25.10 Atherosclerotic heart disease of native coronary artery without angina pectoris; Z95.5 Presence of coronary angioplasty implant and graft; D62 Acute posthemorrhagic anemia; F15.10 Other stimulant abuse, uncomplicated; K64.8 Other hemorrhoids; Z79.02 Long term (current) use of antithrombotics/antiplatelets; Z79.82 Long term (current) use of aspirin; Z79.899 Other long term (current) drug therapy
CPT/HCPCS: 36415; 71046; 80053; 80307; 81001; 82607; 82728; 82746; 83036; 83540; 83550; 83615; 83735; 83880; 84100; 84484; 85014; 85018; 85025; 85347; 85610; 85730; 86850; 86900; 86901; 86923; 93005; 93306; 99152; 99153; 99285; A4649; C1769; C1874; C1887; C1894; J0153; J0168; J0360; J0461; J1200; J1643; J1815; J2250; J2312; J2371; J2405; J2470; J3010; J3475; J3490; J7120; J7999; P9016; Q9967; A9270; J1920; J2305

== ENCOUNTER 2025-03-02 20:23 | Emergency (ER) | payer MEDICAID, SELFPAY ==
[2025-03-02 20:24] VITALS: BMI 31.3
--- NOTE | 2025-03-02 20:27 | EKG_ITS ---
[facility] Test Date: 2025-03-02 Pat Name: MERRITT ENCINAS Department: Room: - Gender: Male Behaviour Support Teacher: : 1975 Requested By: ED Temporary Provider Order Number: [id number] Reading MD: ED Temporary Provider Measurements Intervals [place] Rate: 85 P: 67 TN: 152 QRS: -46 QRSD: 118 T: 114 QT: 369 QTc: 439 Interpretive Statements SINUS RHYTHM WITH OCCASIONAL VENTRICULAR PREMATURE COMPLEXES LEFT AXIS DEVIATION [QRS AXIS < -30] LEFT VENTRICULAR HYPERTROPHY AND ST-T CHANGE [VOLTAGE CRITERIA PLUS ST/T ABNORMALITY] Compared to ECG 02/23/2025 07:50:09 Ventricular premature complex(es) now present Left ventricular hypertrophy now present ST (T wave) deviation now present Incomplete right bundle-branch block no longer present Myocardial infarct finding no longer present T-wave abnormality no longer present Possible ischemia no longer present /[id number]
[2025-03-02 20:31] VITALS: BP 146/88; PULSE 89; RESP 20; TEMP 36.9; O2SAT 99
--- NOTE | 2025-03-02 20:34 | PD.EDCHEST ---
ED Chest Pain RME/HPI General Chief Complaint: Chest Pain Stated Complaint: CHEST PAIN/ DARK STOOL Time Seen by Provider: 03/02/25 20:39 Arrival date/time: 03/02/25 20:23 RME / HPI RME / HPI narrative: See [facility] for Dr. Nino's HPI documentation. Related Data Home Medications ?Medication ?Instructions ?Recorded ?Confirmed lisinopril 20 mg tablet 40 mg PO QDAY 11/29/18 02/23/25 clopidogrel 75 mg tablet 75 mg PO DAILY 12/05/20 02/23/25 metoprolol succinate 50 mg 50 mg PO QDAY 02/23/25 02/23/25 tablet,extended release 24 hr Previous Rx's ?Medication ?Instructions ?Recorded aspirin 81 mg tablet,delayed 81 mg PO QDAY #30 tabs 12/01/18 release (Adult Aspirin Regimen) atorvastatin 20 mg tablet 80 mg (4 x 20 mg) PO HS #30 tabs 06/20/19 Allergies Allergy/AdvReac Type Severity Reaction Status Date / Time No Known Allergies Allergy Verified 09/08/20 16:15 Review of Systems Review of Systems Systems Reviewed: All systems reviewed, normal except as documented ED Exam Narrative Physical exam: See [facility] for Dr. Nino's physical exam documentation. Course Course Course Narrative: CXR is ordered for determining the etiology of chest pain. Quality Measures none Orders Category Date Time Status Bedside COVID-19 Antigen Test NOW Care 03/02/25 20:[address] Screening NOW Care 03/02/25 20:45 Completed EKG (ED ONLY) *Do not use* NOW Care 03/02/25 20:27 Completed Saline [Insert IV] NOW Care 03/02/25 20:[address] angio chest abdomen pelvis Stat Exams 03/02/25 20:45 Completed EKG (ED Only) Stat Exams 03/02/25 20:27 Draft US gall bladder Stat Exams 03/02/25 20:45 Completed US venous doppler LE BI Stat Exams 03/02/25 Completed XR chest 1V portable Stat Exams 03/02/25 20:45 Completed Alcohol, Blood Medical Stat Lab 03/02/25 20:55 Completed Amylase Stat Lab 03/02/25 20:55 Completed BNP [B-Type Natriuretic Peptide] Stat Lab 03/02/25 20:55 Completed Bilirubin,Direct Stat Lab 03/02/25 20:55 Completed CBC Stat Lab 03/02/25 20:55 Completed CMP [Comprehensive Metabolic Panel] Stat Lab 03/02/25 20:55 Completed D-Dimer Stat Lab 03/02/25 20:55 Completed Drug Screen,Urine Stat Lab 03/03/25 00:09 Completed Hemoglobin and Hematocrit Stat Lab 03/03/25 00:23 Completed Influenza A & B Rapid Panel Stat Lab 03/02/25 22:18 Completed Lipase Stat Lab 03/02/25 20:55 Completed Magnesium Stat Lab 03/02/25 20:55 Completed PT [Prothrombin Time with INR] Stat Lab 03/02/25 20:55 Completed PTT [Partial Thromboplastin Time] Stat Lab 03/02/25 20:55 Completed TSH [Thyroid Stimulating Hormone] Stat Lab 03/02/25 20:55 Completed Troponin I Stat Lab 03/02/25 20:55 Completed Type and Screen Stat Lab 03/02/25 20:55 Completed UA, C/S IF [Urinalysis, C/S if Indicated] Stat Lab 03/03/25 00:09 Completed Ondansetron Inj [Zofran Inj] Med 03/02/25 20:44 Discontinued 4 mg IVP X1 ONE Sodium Chloride 0.9% 1000 ml [Ns] 1,000 ml Med 03/02/25 20:44 Discontinued IV 999 mls/hr Vital Signs Vital signs: Vital Signs Temperature 98.5 F 03/02/25 20:31 Pulse Rate 89 03/02/25 20:31 Respiratory Rate 20 03/02/25 20:31 Blood Pressure 146/88 H 03/02/25 20:31 Pulse Oximetry (%) 99 03/02/25 20:31 Oxygen Delivery Method Room Air 03/02/25 20:31 Chest Pain MDM Narrative MDM Narrative:: This section includes all my notes and documentations, including HPI, PE, and ED course. Aaron Nino MD HPI: 49-year-old male here with chest pain and possible GI bleed. Was discharged from this hospital a few days ago. Had cardiac stent. And EGD and colonoscopy and blood transfusion for GI bleed. He reports continued chest pain black stools. No vomiting. No abdominal pain. No bright red blood in the stools. No other complaints. ROS: All negative except as documented in HPI. Physical Exam: General: Alert and oriented. No acute distress when remaining still. Eyes: Conjunctivae and lids clear. ENT: No nasal congestion. Neck: Supple. Heart: RRR. Lungs: No respiratory distress. Good air movement. No rhonchi, wheezing, rales. Abdomen: Soft and nontender. Normal bowel sounds. No distension. No rebound or guarding. Back: No CVA tenderness. Skin: Warm and dry. Pale. Neuro: Alert and oriented X 3. I reviewed all diagnostic test results. My interpretation of the EKG is sinus rhythm with nonspecific ST-T changes. My interpretation of the chest x-ray is NAD. My review of the gallbladder US report is NAD. My review of the BLE US report is NAD. My review of the CTA chest abdomen pelvis report is no acute findings. Blood tests unremarkable, including stable H/H X 2. UA unremarkable. UDS positive for methamphetamine. COVID/Influenza negative. At this point, diagnoses include: History of GI bleed History of heart artery stent Methamphetamine use Treatment here included: IV fluid Zofran Patient remained stable. I discussed the case with our telecommunications operator, Dr. Barrientos. About the presentation and exam and diagnostics and treatments here. Recommended outpatient care. Discharge instructions from Dr. Nino: 1. After extensive evaluation, there is no immediately life-threatening condition. Such as heart attack or pulmonary embolism (blood clots in your lungs) or pneumothorax (collapsed lung) or active internal bleeding. 2. Your case was discussed with Dr. Barrientos. Recommend stop using methamphetamine, to prevent severe illnesses and injuries, some even fatal. 3. Continue current care, as instructed when you are discharged from this hospital a few days ago. 4. See a private doctor on 03/04/2025 for recheck and further care. Ask to review all test results and official radiology reports, to make sure you receive all necessary follow-ups and monitoring. 5. Seek immediate medical care with worsening or with any concerns. Aaron Nino MD Patient data External records reviewed:: [facility] previous records (Per chart review, patient was admitted here on 02/23/25 for chest pain.) Clinical information provided by:: patient Social determinants that could affect healthcare access:: substance use Patient has the following chronic illnesses:: CAD s/p stent x7, HTN, HLD, meth use disorder How is presenting disease/condition affected by chronic disease/condition?: exacerbated by Evaluation data The following diagnostics were reviewed and interpreted by me:: lab results, radiology exam(s) and EKG tracing(s) (My interpretation of the EKG is: Sinus rhythm (81 bpm) with nonspecific ST-T changes. Aaron Nino MD) Lab and/or radiology exams considered but not ordered:: none Interpretation Summary: I reviewed all diagnostic test results. My interpretation of the EKG is sinus rhythm with nonspecific ST-T changes. My interpretation of the chest x-ray is NAD. My review of the gallbladder US report is NAD. My review of the BLE US report is NAD. My review of the CTA chest abdomen pelvis report is no acute findings. Blood tests unremarkable, including stable H/H X 2. UA unremarkable. UDS positive for methamphetamine. COVID/Influenza negative. Medications / Prescriptions Medications or Prescriptions considered but not ordered:: none Medication administrations:: Medication Administration History Discontinued Medications Sodium Chloride (Ns) 1,000 mls @ 999 mls/hr IV .Q1H1M ONE Stop: 03/02/25 21:44 Last Admin: 03/02/25 21:59 Dose: 999 mls/hr Documented By: [email or web address] Ondansetron HCl (Ondansetron Inj 2 Mg/Ml Inj 2 Ml) 4 mg IVP X1 ONE; Protocol Stop: 03/02/25 20:45 Last Admin: 03/02/25 21:59 Dose: 4 mg Documented By: [email or web address] IV fluid Zofran Consultations Consultation(s) initiated? (list below): Yes Consultation #1 (Physician, Specialty, Details): I discussed the case with our telecommunications operator, Dr. Barrientos. About the presentation and exam and diagnostics and treatments here. Recommended outpatient care. Diagnosis Chest Pain Differential Diagnosis: pneumothorax, stable angina, unstable angina pectoris, st elevation myocardial infarction, biliary colic and other (GI bleed) Most likely diagnosis given after review of the tests above:: History of GI bleed History of heart artery stent Methamphetamine use Admission Indicated Admission indicated?: not indicated Explain why admission is indicated or not indicated:: With no condition needing emergent intervention, there was no indication for admission. Admission Request Was there a request for admission?: No Disposition Plan Disposition Plan: Discharge Discharge Attestation Discharge Attestation: The patient and all family members were given an opportunity to ask questions and understood the discharge instructions. Discharge instructions specifically effects, indications for sooner follow up or return to the emergency department, and the expected course of current diagnosis. Patient condition: Stable Discharge Plan Plan Patient Disposition: HOME (Self Care) Prescriptions/Referrals Prescriptions/Med Rec: No Action clopidogrel 75 mg tablet 75 mg PO DAILY lisinopril 20 mg tablet 40 mg PO QDAY aspirin [Adult Aspirin Regimen] 81 mg tablet,delayed release (DR/EC) 81 mg PO QDAY Qty: 30 0RF atorvastatin 20 mg Tablet 80 mg PO HS Qty: 30 0RF metoprolol succinate 50 mg tablet extended release 24 hr 50 mg PO QDAY Patient Comments: TAKE 1 TABLET BY MOUTH EVERY DAY FOR 7 DAYS Referrals: No Primary/Family,Physician [Primary Care Provider] - In 1 week Problem List Clinical Impression: History of GI bleed, History of heart artery stent, Methamphetamine use Patient/Caregiver Discharge Instructions Discharge Activity: activity as tolerated Education Materials: Understanding Methamphetamine ..., ED Heart Disease Education, ED Lower GI Bleeding (Stable), ED Upper GI Bleeding (Stable) Additional Instructions: Discharge instructions from Dr. Nino: 1. After extensive evaluation, there is no immediately life-threatening condition.? Such as heart attack or pulmonary embolism (blood clots in your lungs) or pneumothorax (collapsed lung) or active internal bleeding. 2. Your case was discussed with Dr. Barrientos. Recommend stop using methamphetamine, to prevent severe illnesses and injuries, some even fatal. 3. Continue current care, as instructed when you are discharged from this hospital a few days ago. 4. See a private doctor on 03/04/2025 for recheck and further care. Ask to review all test results and official radiology reports, to make sure you receive all necessary follow-ups and monitoring. 5. Seek immediate medical care with worsening or with any concerns.?? Print Language: Albanian Stand Alone Forms: Joann Award Info., Patient Portal Info Letter
--- NOTE | 2025-03-02 20:45 | XR_ITS ---
EXAMINATION: AP chest single view TECHNIQUE: AP portable upright chest single view Date and time: March 02, 2025, 2120 hours, comparison 02/23/2025 INDICATIONS: Shortness of breath today FINDINGS: No significant cardiac enlargement No pneumonia or pulmonary edema. Moderate osteopenia, old fracture left clavicle IMPRESSION: No pneumonia or pulmonary edema
--- NOTE | 2025-03-02 20:45 | XR_ITS ---
Examination: CTA chest, with intravenous contrast. CTA abdomen, with intravenous contrast. CTA pelvis, with intravenous contrast. 2-D sagittal and coronal reconstructions. 3-D reconstructions. Date and time of exam: March 02, 2025, 10:56 p.m. INDICATIONS: Chest pain 1 week dark stools CTDI vol (mgy) 10.5 DLP (MGycm) 825 Technique: Multiple CTA images, 2.0 mm slice thickness, obtained chest, abdomen, pelvis, with the high-resolution 64 slice scanner. 100 cc Isovue-370 is administered intravenously. Sagittal and coronal 2-D reconstructions are obtained. 3-D reconstructions, angiographic images are obtained. 3-D postprocessing, including vascular maximum intensity projections. Low dose protocols were performed. One or more of the following dose reduction techniques were used; automated exposure control, adjustment of the mA and/or KV according to patient size, use of iterative reconstruction technique. Findings: No thoracic aortic aneurysm dilatation or dissection No pulmonary artery filling defects There is heavy calcification of the left anterior descending left circumflex coronary arteries Mild enlargement left atrium left ventricle 4 mm pulmonary nodule left upper lobe image 104 2 mm pulmonary nodule left upper lobe image 116 3 mm pulmonary nodule left lower lobe image 127 3 mm pulmonary nodule right lower lobe image 212 No pneumonia or pulmonary edema or pleural disease No liver or splenic lesion No gallstones No pancreatic or adrenal mass. 3 mm left renal calculus, no hydronephrosis or ureteral calculi Appendix does not appear inflamed No bowel obstruction No diverticulitis Intact urinary bladder Transverse prostate dimension 4.7 cm Fat-containing bilateral inguinal hernias Minimal thickening of the rectal wall Advanced disc narrowing L5-S1 IMPRESSION: No thoracic aortic aneurysm dilatation or dissection Negative for pulmonary artery emboli Very heavy calcification left anterior descending left circumflex coronary arteries for a patient of this age Noncalcified pulmonary nodules as above, with the study as baseline recommend 6-month follow-up CT chest No pneumonia, pulmonary edema or pleural disease 3 mm nonobstructing left renal calculus No CT findings of appendicitis or bowel obstruction Mild prostatomegaly Mild thickening of the rectal wall, consider proctitis
--- NOTE | 2025-03-02 20:45 | XR_ITS ---
Examination: Abdomen sonogram, Limited Date and time of exam: March 02, 2025, 2054 hours INDICATIONS: Epigastric pain chest pain today, postop cardiac stent 1 week ago Technique: Real-time marsh scale transabdominal sonographic images of the upper abdomen obtained. Findings: Negative for gallstones Gallbladder wall 0.46 cm Common bile duct 0.4 cm no stones Pancreatic head 2.8 cm Liver 14.5 cm fatty infiltration no focal liver lesions Normal hepatopetal portal venous flow Patent IVC IMPRESSION: Negative for gallstones, thickened gallbladder wall 0.46 cm, consider HIDA scan or MRCP follow-up to exclude cholecystitis
--- NOTE | 2025-03-02 20:46 | XR_ITS ---
Examination: Venous duplex lower extremity sonogram, bilateral. Date and time of exam: March 02, 2025, 2100 hours INDICATIONS: Leg edema and pain today, elevated D-dimer on laboratory examination Technique: Multiple sonographic images of the deep venous system have been obtained. B-mode/2-D grayscale imaging of vascular structures and Doppler spectral analysis (waveforms) and color performed Both legs are examined. Findings: Deep venous systems do not demonstrate abnormal echogenicity. All visualized deep veins exhibit compressibility. All visualized deep veins exhibit augmentation. Impression: Negative for deep vein thrombosis
[2025-03-02 21:44] LABS: Basophils # (Auto) 0.1 Thou/mm3 (0.0-0.2); Basophils % (Auto) 1 % (0-2.5); Eosinophils # (Auto) 0.9 Thou/mm3 (0.0-0.5); Eosinophils % (Auto) 9 % (0-10); Hematocrit 28.4 % (41.0-53.0); Hemoglobin 8.9 g/dL (13.5-16.0); Immature Granulocytes Auto 0.05 Thou/mm3 (0.00-0.00); Lymphocytes # (Auto) 3.2 Thou/mm3 (1.0-4.8); Lymphocytes % (Auto) 33 % (10-50); Mean Corpuscular HGB Conc 31.3 g/dl (31.0-37.0); Mean Corpuscular Hemoglobin 26.9 pg (25.0-35.0); Mean Corpuscular Volume 86 fL (80-100); Monocytes # (Auto) 0.7 Thou/mm3 (0.0-0.8); Monocytes % (Auto) 8 % (0-12); Neutrophils # (Auto) 4.7 Thou/mm3 (1.8-7.7); Neutrophils % (Auto) 49 % (37-80); Nucleated Red Blood Cell # 0.00 Thou/mm3 (0.00-0.00); Nucleated Red Blood Cell % 0 /100 WBC (0); Platelet Count 554 Thou/mm3 (140-440); RDW Standard Deviation 47.8 fL (35.1-43.9); Red Blood Count 3.31 Miln/mm3 (4.50-5.90); White Blood Count 9.6 Thou/mm3 (3.8-10.6)
[2025-03-02] MEDS: SODIUM CHLORIDE 0.9% 1000 ML 1,000 ML 999 ML IV (21:59)
[2025-03-02] MEDS: ONDANSETRON INJ 2 MG/ML INJ 2 ML 4 MG IVP (21:59)
[2025-03-02 22:05] LABS: D-Dimer 866 ng/mL (<600)
[2025-03-02 22:08] LABS: Alanine Aminotransferase 39 U/L (10-49); Albumin, Serum 4.2 gm/dL (3.5-5.0); Albumin/Globulin Ratio 2.2 (1.2-2.2); Alcohol, Blood Medical < 3.0 mg/dL (0-10.0); Alkaline Phosphatase 94 U/L (46-116); Amylase 43 U/L (30-118); Anion Gap 6 (7-16); Aspartate Amino Transferase 29 U/L (0-34); BUN/Creatinine Ratio 19 Ratio (12-20); Bilirubin,Direct < 0.1 mg/dL (0.0-0.3); Bilirubin,Total 0.3 mg/dL (0.3-1.2); Blood Urea Nitrogen 19 mg/dL (9-23); Calcium 8.9 mg/dL (8.3-10.6); Calcium (Corrected) 8.9 mg/dL (8.5-10.1); Carbon Dioxide 25.7 mMol/L (20.0-31.0); Chloride 112 mMol/L (98-107); Creatinine (Component) 1.0 mg/dL (0.6-1.3); Estimated Creatinine Clearance 94.9 mL/min (>60); Globulin 1.9 gm/dL (2.3-3.5); Glucose 100 mg/dL (74-106); Lipase 35 U/L (12-53); Magnesium 2.2 mg/dL (1.6-2.6); Osmolality,Calculated 289 (275-295); Potassium 4.3 mMol/L (3.4-5.1); Sodium 144 mMol/L (136-145); Thyroid Stimulating Hormone 1.49 uIU/mL (0.55-4.78); Total Protein 6.1 gm/dL (5.7-8.2); Troponin I < 0.020 ng/mL (0.0-0.045); eGFR > 60 See Note
[2025-03-02 22:10] LABS: B-Type Natriuretic Peptide 92 pg/mL (0-100)
[2025-03-02 22:11] VITALS: BP 153/92; PULSE 78; RESP 19; TEMP 36.8; O2SAT 100
[2025-03-02 22:23] LABS: INR 1.0 (0.9-1.3); Partial Thromboplastin Time 25.9 Seconds (22.0-36.0); Prothrombin Time 11.0 Seconds (9.0-12.2)
[2025-03-02 22:56] LABS: Influenza A Ag Negative; Influenza B Ag Negative
[2025-03-03 00:14] LABS: Collection Type, Urine Clean Catch; Squamous Epithelial Cell,Urine 0 /hpf (0-5)
[2025-03-03 00:18] VITALS: BP 153/92; PULSE 90; RESP 19; TEMP 36.9; O2SAT 99
[2025-03-03 00:20] LABS: Bilirubin,Urine Negative (Negative); Blood,Urine Negative (Negative); Clarity,Urine Clear (Clear/Hazy); Color,Urine Lt-Yellow (Lt Yel-Yel); Culture Indicated,Urine Not Indicated; Glucose, Urine Negative (Negative); Ketones,Urine Negative (Negative); Leukocyte Esterase,Urine Negative (Negative); Nitrite,Urine Negative (Negative); PH,Urine 6.0 (5.0-7.0); Protein,Urine Negative (Neg - Trace); RBC,Urine 1 /hpf (0-3); Specific Gravity,Urine 1.050 (1.001-1.035); Urobilinogen,Urine Negative mg/dL (0.0-1.0); WBC,Urine < 1 /hpf (0-5)
[2025-03-03 00:26] LABS: Amphetamine/Methamp Scrn,U Positive (Negative); Barbiturate Screen,Urine Negative (Negative); Benzodiazepines Screen,Urine Negative (Negative); Benzoylecgonine Screen, Ur Negative (Negative); Fentanyl Screen,Urine Negative (Negative); Opiate Screen,Urine Negative (Negative); THC Screen,Urine Negative (Negative)
[2025-03-03 00:30] LABS: Hematocrit 27.5 % (41.0-53.0)
[2025-03-03 00:33] LABS: Hemoglobin 8.6 g/dL (13.5-16.0)
[2025-03-03 00:55] VITALS: BP 153/92; PULSE 88; RESP 18; O2SAT 99
== END 2025-03-03 00:59 | disposition home or self-care (01) ==
PROVIDERS: Emergency Provider Emergency Medicine
DX: F15.90 Other stimulant use, unspecified, uncomplicated (principal); K92.1 Melena; I49.3 Ventricular premature depolarization; R07.9 Chest pain, unspecified; R10.13 Epigastric pain; R60.0 Localized edema; M79.605 Pain in left leg; M79.604 Pain in right leg; R06.02 Shortness of breath; I25.10 Atherosclerotic heart disease of native coronary artery without angina pectoris; I10 Essential (primary) hypertension; Z95.5 Presence of coronary angioplasty implant and graft
CPT/HCPCS: 36415; 71045; 71275; 74174; 76705; 80053; 80307; 80320; 81001; 82150; 82248; 83690; 83735; 83880; 84443; 84484; 85014; 85018; 85025; 85379; 85610; 85730; 86850; 86900; 86901; 87502; 87811; 93005; 93970; 96374; 99284; A4649; J2405; J7030; Q9967; G0480

== ENCOUNTER 2025-03-11 12:45 | Emergency (ER) | payer MEDICAID, SELFPAY ==
--- NOTE | 2025-03-11 12:49 | EKG_ITS ---
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: : 1975 Requested By: ED Temporary Provider Order Number: [id number] Reading MD: ED Temporary Provider Measurements Intervals [place] Rate: 82 P: 59 [place]: 141 QRS: -38 QRSD: 112 T: 121 QT: 396 QTc: 463 Interpretive Statements SINUS RHYTHM LEFT ATRIAL ENLARGEMENT [-0.15mV P-WAVE IN V1/V2] LEFT AXIS DEVIATION [QRS AXIS < -30] MODERATE INTRAVENTRICULAR CONDUCTION DELAY [105+ ms QRS DURATION, 80+ ms Q/S IN V1/V2, NO Q AND 60+ ms R IN I/aVL/V5/V6] ST DEVIATION AND MODERATE T-WAVE ABNORMALITY, CONSIDER LATERAL ISCHEMIA [-0.1+ mV T-WAVE IN I/aVL/V5/V6] Compared to ECG 03/02/2025 20:29:08 Atrial abnormality now present Intraventricular conduction delay now present T-wave abnormality now present Possible ischemia now present Ventricular premature complex(es) no longer present Left ventricular hypertrophy no longer present ST (T wave) deviation no longer present /store/S0/[id number]/ecg/[id number].pdf
[2025-03-11 12:59] VITALS: BP 110/77; PULSE 83; RESP 18; TEMP 36.4; O2SAT 100; BMI 29.4
--- NOTE | 2025-03-11 13:04 | XR_ITS ---
EXAMINATION: AP chest single view TECHNIQUE: 1. AP portable upright chest single view Date and time: March 11, 2025, 1341 hours, comparison March 02, 2025 INDICATIONS: Dizziness shortness of breath chest pain today. FINDINGS: Normal heart size Lungs are clear. The osseous structures are intact with old fracture left clavicle IMPRESSION: No active disease
[2025-03-11 13:32] VITALS: PULSE 77; RESP 100; RESP 13
[2025-03-11 13:44] LABS: Basophils # (Auto) 0.1 Thou/mm3 (0.0-0.2); Basophils % (Auto) 1 % (0-2.5); Eosinophils # (Auto) 0.7 Thou/mm3 (0.0-0.5); Eosinophils % (Auto) 7 % (0-10); Hematocrit 30.8 % (41.0-53.0); Hemoglobin 9.5 g/dL (13.5-16.0); Immature Granulocytes Auto 0.04 Thou/mm3 (0.00-0.00); Lymphocytes # (Auto) 2.7 Thou/mm3 (1.0-4.8); Lymphocytes % (Auto) 28 % (10-50); Mean Corpuscular HGB Conc 30.8 g/dl (31.0-37.0); Mean Corpuscular Hemoglobin 24.7 pg (25.0-35.0); Mean Corpuscular Volume 80 fL (80-100); Monocytes # (Auto) 0.7 Thou/mm3 (0.0-0.8); Monocytes % (Auto) 7 % (0-12); Neutrophils # (Auto) 5.5 Thou/mm3 (1.8-7.7); Neutrophils % (Auto) 57 % (37-80); Nucleated Red Blood Cell # 0.00 Thou/mm3 (0.00-0.00); Nucleated Red Blood Cell % 0 /100 WBC (0); Platelet Count 917 Thou/mm3 (140-440); RDW Standard Deviation 45.5 fL (35.1-43.9); Red Blood Count 3.84 Miln/mm3 (4.50-5.90); White Blood Count 9.7 Thou/mm3 (3.8-10.6)
[2025-03-11 13:47] VITALS: BP 133/92; PULSE 70
[2025-03-11] MEDS: NITROGLYCERIN OINT 2% 1 INCH PACKET TOP (13:47)
[2025-03-11] MEDS: MORPHINE SULF INJ 4 MG/ML VIAL 2 MG IVP (13:50)
[2025-03-11] MEDS: ASPIRIN 81 MG CHEW 324 MG PO (13:52)
[2025-03-11] MEDS: SODIUM CHLORIDE 0.9% 1000 ML 1,000 ML 100 ML IV (13:52)
[2025-03-11 14:01] LABS: INR 1.0 (0.9-1.3); Partial Thromboplastin Time 23.2 Seconds (22.0-36.0); Prothrombin Time 11.1 Seconds (9.0-12.2)
[2025-03-11 14:07] LABS: Alanine Aminotransferase 20 U/L (10-49); Albumin, Serum 4.5 gm/dL (3.5-5.0); Albumin/Globulin Ratio 2.3 (1.2-2.2); Alkaline Phosphatase 109 U/L (46-116); Anion Gap 12 (7-16); Aspartate Amino Transferase 21 U/L (0-34); BUN/Creatinine Ratio 16 Ratio (12-20); Bilirubin,Total 0.3 mg/dL (0.3-1.2); Blood Urea Nitrogen 16 mg/dL (9-23); Calcium 9.1 mg/dL (8.3-10.6); Calcium (Corrected) 9.1 mg/dL (8.5-10.1); Carbon Dioxide 26.2 mMol/L (20.0-31.0); Chloride 103 mMol/L (98-107); Creatinine (Component) 1.0 mg/dL (0.6-1.3); Estimated Creatinine Clearance 92.2 mL/min (>60); Globulin 2.0 gm/dL (2.3-3.5); Glucose 137 mg/dL (74-106); Magnesium 2.2 mg/dL (1.6-2.6); Osmolality,Calculated 284 (275-295); Potassium 4.2 mMol/L (3.4-5.1); Sodium 141 mMol/L (136-145); Total Protein 6.5 gm/dL (5.7-8.2); Troponin I 0.028 ng/mL (0.0-0.045); eGFR > 60 See Note
[2025-03-11 14:13] LABS: B-Type Natriuretic Peptide 153 pg/mL (0-100)
--- NOTE | 2025-03-11 14:22 | PD.EDCHEST ---
ED Chest Pain RME/HPI General Chief Complaint: Chest Pain Stated Complaint: C/P SOB RECENT STENT PLACEMENT WITH DR. MARLEY Time Seen by Provider: 03/11/25 13:17 Arrival date/time: 03/11/25 12:45 Limitations: no limitations RME / HPI RME / HPI narrative: 49 year old male with history of NSTEMI, CAD s/p PCI x8, hypertension, hyperlipidemia presents to the ED BIBA from home for evaluation of exertional chest pain beginning after waking this morning at 07:00 AM. Described as aching in sensation that was located most to the left side of chest with no radiation, rating as severe. States pain resolved after 5 minutes. States shortly after pain resolved he walked to the restroom without incident. States while bearing down to have a bowel movement, he believes to have lost consciousness. States he woke up with my head against the wall and in a cold sweat. During that time noted to have severe chest pain and felt short of breath. Also complained of nausea which he says is new. Patient mentioned he had experienced similar pain before getting his last stent placed 13 days ago. Denies fevers, chills, abdominal pain, vomiting, diarrhea, or urinary symptoms. Patient admits to using meth and last used 1 week ago. Related Data Home Medications ?Medication ?Instructions ?Recorded ?Confirmed lisinopril 20 mg tablet 40 mg PO QDAY 11/29/18 02/23/25 clopidogrel 75 mg tablet 75 mg PO DAILY 12/05/20 02/23/25 metoprolol succinate 50 mg 50 mg PO QDAY 02/23/25 02/23/25 tablet,extended release 24 hr Previous Rx's ?Medication ?Instructions ?Recorded aspirin 81 mg tablet,delayed 81 mg PO QDAY #30 tabs 12/01/18 release (Adult Aspirin Regimen) atorvastatin 20 mg tablet 80 mg (4 x 20 mg) PO HS #30 tabs 06/20/19 Allergies Allergy/AdvReac Type Severity Reaction Status Date / Time No Known Allergies Allergy Verified 03/11/25 12:48 Review of Systems Review of Systems Systems Reviewed: All systems reviewed, normal except as documented Past Medical History Past Medical History NEUROLOGIC: Positive Neurological Disorders CARDIAC: Positive Cardiac Disorders, Coronary Artery Disease, Hypercholesterolemia, Congestive Heart Failure, Edema and Hypertension GASTROINTESTINAL: Positive Gastrointestinal Disorders and Colitis Surgical History SURGICAL: Positive Cardiac Surgery and Coronary Stent (x1) Social History SMOKING STATUS: Never smoker SUBSTANCE USE: other (Remote history of polysubstance abuse. Did eat some marijuana laced gummy bears Recently) ED Exam General Limitations: Present no limitations General appearance: Present alert and in no apparent distress Head Head exam: Present atraumatic, normocephalic and normal inspection Eye Eye exam: Present normal appearance, PERRL and EOMI ENT ENT exam: Present normal exam, normal oropharynx and mucous membranes moist Neck Neck exam: Present normal inspection, full ROM and trachea midline Chest Chest inspection: Present normal inspection and symmetric chest wall rise Respiratory Respiratory exam: Present normal lung sounds bilaterally Cardiovascular Cardiovascular exam: Present regular rate, normal rhythm and normal heart sounds Abdominal Exam Abdominal exam: Present soft and normal bowel sounds Extremities Exam Extremities exam: Present normal inspection and full ROM Back Exam Back exam: Present normal inspection and full ROM Neurological Exam Neurological exam: Present alert, oriented X3 and CN II-XII intact Psychiatric Psychiatric exam: Present normal affect and normal mood Skin Skin exam: Present warm, dry, intact and normal color Course Quality Measures none Orders Category Date Time Status Marketing Development Manager NOW Care 03/11/25 13:04 Completed Continuous Pulse Oximetry ONCE Care 03/11/25 13:18 Completed EKG (ED ONLY) *Do not use* NOW Care 03/11/25 12:50 Completed Insert IV STAT Care 03/11/25 13:18 Completed EKG (ED Only) Stat Exams 03/11/25 12:49 Draft XR chest 1V portable Stat Exams 03/11/25 13:04 Completed B-Type Natriuretic Peptide Stat Lab 03/11/25 13:30 Completed CBC Stat Lab 03/11/25 13:30 Completed Comprehensive Metabolic Panel Stat Lab 03/11/25 13:30 Completed Magnesium Stat Lab 03/11/25 13:30 Completed Partial Thromboplastin Time Stat Lab 03/11/25 13:30 Completed Prothrombin Time with INR Stat Lab 03/11/25 13:30 Completed Troponin I Stat Lab 03/11/25 13:30 Completed Troponin I Stat Lab 03/11/25 15:22 Completed Aspirin Chew Med 03/11/25 13:18 Discontinued 324 mg PO X1 ONE Morphine* Inj Med 03/11/25 13:19 Discontinued 2 mg IVP X1 ONE Nitroglycerin Oint 2% [Nitro-paste Oint 2%] Med 03/11/25 13:18 Discontinued 1 inch TOP X1 ONE Sodium Chloride 0.9% 1000 ml [Ns] 1,000 ml Med 03/11/25 13:18 Discontinued IV 100 mls/hr Oxygen Delivery NOW RT 03/11/25 13:18 Completed Vital Signs Vital signs: Vital Signs Temperature 97.6 F 03/11/25 12:59 Pulse Rate 83 03/11/25 12:59 Respiratory Rate 18 03/11/25 12:59 Blood Pressure 110/77 03/11/25 12:59 Pulse Oximetry (%) 100 03/11/25 12:59 Oxygen Delivery Method Room Air 03/11/25 12:59 Pulse ox is 100% on room air which is adequate. Chest Pain MDM Narrative MDM Narrative:: IMargaret, am scribing for and in the presence of Dr. Camarillo. I reviewed patients labs. Initial troponin is negative and delta troponin is also negative. I discussed lab and EKG results with iphone developer Dr. Marley. Advised he follow up with PCP for referral to cardiology. Patient data External records reviewed:: [facility] previous records and EMS form Clinical information provided by:: patient and EMS Social determinants that could affect healthcare access:: substance use (meth ) Patient has the following chronic illnesses:: CAD s/p PCI x8, hypertension, hyperlipidemia How is presenting disease/condition affected by chronic disease/condition?: exacerbated by Evaluation data The following diagnostics were reviewed and interpreted by me:: EKG tracing(s) (EKG @ 12:56. Sinus rhythm, rate 82, left atrial enlargement, left axis deviation, no STEMI. ) Lab and/or radiology exams considered but not ordered:: None Interpretation Summary: Ordering Physician: Gunnar CHATTERJEE)Gutierrez NP Date of Service: 03/11/25 Procedure(s): XR chest 1V portable Accession Number(s): [id number] cc: Gunnar CHATTERJEE)Gutierrez NP; Oscar Dia MD~ EXAMINATION: AP chest single view TECHNIQUE: 1. AP portable upright chest single view Date and time: March 11, 2025, 1341 hours, comparison March 02, 2025 INDICATIONS: Dizziness shortness of breath chest pain today. FINDINGS: Normal heart size Lungs are clear. The osseous structures are intact with old fracture left clavicle IMPRESSION: No active disease Dictated By: Oscar Dia MD Signed By: <Electronically signed by Oscar Dia MD in OV> 03/11/25 1403 Medications / Prescriptions Medications or Prescriptions considered but not ordered:: None Medication administrations:: Medication Administration History Discontinued Medications Aspirin (Aspirin 81 Mg Chew) 324 mg PO X1 ONE Stop: 03/11/25 13:19 Last Admin: 03/11/25 13:52 Dose: 324 mg Documented By: PIETER Sodium Chloride (Ns) 1,000 mls @ 100 mls/hr IV .Q10H ONE Stop: 03/11/25 23:17 Last Admin: 03/11/25 13:52 Dose: 100 mls/hr Documented By: PIETER Morphine Sulfate (Morphine Sulf Inj 4 Mg/Ml Vial) 2 mg IVP X1 ONE Stop: 03/11/25 13:20 Last Admin: 03/11/25 13:50 Dose: 2 mg Documented By: PIETER Nitroglycerin (Nitroglycerin Oint 2% 1 Inch Packet) 1 inch TOP X1 ONE Stop: 03/11/25 13:19 Last Admin: 03/11/25 13:47 Dose: 1 inch Documented By: PIETER See above Consultations Consultation(s) initiated? (list below): Yes Consultation #1 (Physician, Specialty, Details): I spoke with iphone developer Dr. Marley. Discussed patients PMHx, HPI, ED course, exam findings, labs, and radiology results. Agrees with plan to DC home with outpatient follow up. Diagnosis Most likely diagnosis given after review of the tests above:: Chest pain s/p cardiac stent placement Meth abuse Admission Indicated Admission indicated?: not indicated Admission Request Was there a request for admission?: No Disposition Plan Disposition Plan: Discharge Discharge Attestation Discharge Attestation: The patient and all family members were given an opportunity to ask questions and understood the discharge instructions. Discharge instructions specifically effects, indications for sooner follow up or return to the emergency department, and the expected course of current diagnosis. Patient condition: Stable Discharge Plan Plan Patient Disposition: HOME (Self Care) Prescriptions/Referrals Prescriptions/Med Rec: No Action clopidogrel 75 mg tablet 75 mg PO DAILY lisinopril 20 mg tablet 40 mg PO QDAY aspirin [Adult Aspirin Regimen] 81 mg tablet,delayed release (DR/EC) 81 mg PO QDAY Qty: 30 0RF atorvastatin 20 mg Tablet 80 mg PO HS Qty: 30 0RF metoprolol succinate 50 mg tablet extended release 24 hr 50 mg PO QDAY Patient Comments: TAKE 1 TABLET BY MOUTH EVERY DAY FOR 7 DAYS Referrals: No Primary/Family,Physician [Primary Care Provider] - In 1 week Problem List Clinical Impression: Chest pain, S/P angioplasty with stent, Methamphetamine abuse Patient/Caregiver Discharge Instructions Education Materials: ED Chest Pain, Uncertain Cause, ED Drug Abuse Additional Instructions: Follow-up with your primary care doctor tomorrow for referral to iphone developer. You can return to the emergency department sooner if symptoms worsen or if you notice any new, concerning issues. Stop using methamphetamine. Please continue your usual medications. Print Language: Kyrgyz Stand Alone Forms: Joann Award Info., Patient Portal Info Letter
[2025-03-11 16:11] LABS: Troponin I 0.025 ng/mL (0.0-0.045)
[2025-03-11 16:51] VITALS: BP 129/70; PULSE 79; RESP 16; TEMP 36.6; O2SAT 97
== END 2025-03-11 16:55 | disposition home or self-care (01) ==
PROVIDERS: Nurse Practitioner Primary Care; Emergency Provider Family Medicine
DX: R07.9 Chest pain, unspecified (principal); F15.10 Other stimulant abuse, uncomplicated
CPT/HCPCS: 36415; 71045; 80053; 83735; 83880; 84484; 85025; 85610; 85730; 93005; 96374; 99283; J2270; J7030; A9270

== ENCOUNTER 2025-05-21 01:28 | Emergency (ER) | payer MEDICAID, SELFPAY ==
[2025-05-21] VITALS (7 sets, daily range): BP systolic 150–173; BP diastolic 86–98; PULSE 81–95; RESP 16–20; TEMP 36.7–37; O2SAT 96–100
--- NOTE | 2025-05-21 01:55 | XR_ITS ---
Examination: CT abdomen and pelvis without contrast. Coronal 3-D reconstructions. Sagittal 2-D reconstructions. Date and time of exam: May 21, 2025, 0211 hours INDICATIONS: Severe left flank pain beginning 1 hour ago CTDI: vol (mGy): 8.08 DLP: (mGycm): 469 Technique: Axial images of the abdomen have been obtained, 3 mm slice thickness Intravenous contrast material has not been administered. Low dose protocols were performed. One or more of the following dose reduction techniques were used; automated exposure control, adjustment of the mA and/or KV according to patient size, use of iterative reconstruction technique. Findings: No focal liver or splenic lesions Contracted gallbladder No pancreatic mass Fat-containing duodenal lipoma 3 mm calculus left ureteropelvic junction with minimal hydronephrosis Normal appendix No bowel obstruction No bladder mass or bladder calculi Tiny fat-containing inguinal hernias IMPRESSION: 3 mm left ureteropelvic junction calculus with minimal hydronephrosis
--- NOTE | 2025-05-21 01:56 | PD.EDRME ---
Rapid Medical Screening Exam RME Arrival date/time: 05/21/25 01:28 49M with history of CAD s/p 7 stents, HTN, meth use, and GI bleed, presents to ED with sudden flank pain that radiates to groin, as well as N/V. D Chief Complaint: Abdominal Pain Time Seen by Provider: 05/21/25 01:55 Vital signs: Vital Signs Temperature 98.1 F 05/21/25 01:43 Pulse Rate 89 05/21/25 01:43 Respiratory Rate 20 05/21/25 01:43 Blood Pressure 163/92 H 05/21/25 01:43 Pulse Oximetry (%) 97 05/21/25 01:43 Oxygen Delivery Method Room Air 05/21/25 01:43 Exam: Appears to be in pain. Clinical Impression: Kidney stone vs diverticulitis vs UTI/pyelo vs dissection vs meseteric ischemia
[2025-05-21] MEDS: ONDANSETRON ODT 4 MG TABRAP PO (02:04)
[2025-05-21] MEDS: MORPHINE SULF INJ 4 MG/ML VIAL IM (02:05)
[2025-05-21 02:15] LABS: Lactate (Lactic Acid) 1.8 mMol/L (0.4-2.0)
[2025-05-21 02:17] LABS: Basophils # (Auto) 0.1 Thou/mm3 (0.0-0.2); Basophils % (Auto) 1 % (0-2.5); Eosinophils # (Auto) 0.7 Thou/mm3 (0.0-0.5); Eosinophils % (Auto) 5 % (0-10); Hematocrit 25.8 % (41.0-53.0); Immature Granulocytes Auto 0.04 Thou/mm3 (0.00-0.00); Lymphocytes # (Auto) 1.9 Thou/mm3 (1.0-4.8); Lymphocytes % (Auto) 14 % (10-50); Mean Corpuscular HGB Conc 28.3 g/dl (31.0-37.0); Mean Corpuscular Hemoglobin 18.0 pg (25.0-35.0); Mean Corpuscular Volume 64 fL (80-100); Monocytes # (Auto) 1.0 Thou/mm3 (0.0-0.8); Monocytes % (Auto) 7 % (0-12); Neutrophils # (Auto) 9.3 Thou/mm3 (1.8-7.7); Neutrophils % (Auto) 72 % (37-80); Nucleated Red Blood Cell # 0.00 Thou/mm3 (0.00-0.00); Nucleated Red Blood Cell % 0 /100 WBC (0); Platelet Count 492 Thou/mm3 (140-440); RDW Standard Deviation 42.7 fL (35.1-43.9); Red Blood Count 4.05 Miln/mm3 (4.50-5.90); White Blood Count 13.0 Thou/mm3 (3.8-10.6)
[2025-05-21 02:18] LABS: Hemoglobin 7.3 g/dL (13.5-16.0); Path Review Blood Smear Sent to Pathologist
[2025-05-21 02:37] LABS: Alanine Aminotransferase 19 U/L (10-49); Albumin, Serum 3.9 gm/dL (3.5-5.0); Albumin/Globulin Ratio 1.6 (1.2-2.2); Alkaline Phosphatase 106 U/L (46-116); Anion Gap 11 (7-16); Aspartate Amino Transferase 24 U/L (0-34); BUN/Creatinine Ratio 17 Ratio (12-20); Bilirubin,Total 0.7 mg/dL (0.3-1.2); Blood Urea Nitrogen 19 mg/dL (9-23); Calcium 8.8 mg/dL (8.3-10.6); Calcium (Corrected) 8.9 mg/dL (8.5-10.1); Carbon Dioxide 23.5 mMol/L (20.0-31.0); Chloride 104 mMol/L (98-107); Creatinine (Component) 1.1 mg/dL (0.6-1.3); Estimated Creatinine Clearance 84.7 mL/min (>60); Globulin 2.4 gm/dL (2.3-3.5); Glucose 152 mg/dL (74-106); Osmolality,Calculated 280 (275-295); Potassium 3.5 mMol/L (3.4-5.1); Sodium 138 mMol/L (136-145); Total Protein 6.3 gm/dL (5.7-8.2); eGFR > 60 See Note
[2025-05-21] MEDS: KETOROLAC INJ 30 MG/ML VIAL IVP (03:23)
--- NOTE | 2025-05-21 03:23 | PD.EDABDPN ---
ED Abdominal Pain RME/HPI General Chief Complaint: Abdominal Pain Stated complaint: L FLANK PAIN Time seen by provider: 05/21/25 01:55 Arrival date/time: 05/21/25 01:28 RME / HPI RME / HPI narrative: 05/21/25 01:28 49M with history of CAD s/p 7 stents, HTN, meth use, and GI bleed, presents to ED with sudden flank pain that radiates to groin, as well as N/V. D DR. LEONG MAIN ED EVALUATION: Patient presenting after having awoken with sudden LLQ abdominal pain at approximately 2:30 AM. Reports urinary frequency, although denies dysuria, gross hematuria, and reports nausea without emesis. Pain radiates to the left testicle. PMH: GI Bleed, HTN, CAD, A Fib, CHF PSH: Cardiac stent placement x8 Allergies: NKDA Social: Methamphematine Abuse, Marijuana Exam: Appears to be in pain. Impression: Kidney stone vs diverticulitis vs UTI/pyelo vs dissection vs meseteric ischemia Related Data Home Medications ?Medication ?Instructions ?Recorded ?Confirmed lisinopril 20 mg tablet 40 mg PO QDAY 11/29/18 02/23/25 clopidogrel 75 mg tablet 75 mg PO DAILY 12/05/20 02/23/25 metoprolol succinate 50 mg 50 mg PO QDAY 02/23/25 02/23/25 tablet,extended release 24 hr Previous Rx's ?Medication ?Instructions ?Recorded aspirin 81 mg tablet,delayed 81 mg PO QDAY #30 tabs 12/01/18 release (Adult Aspirin Regimen) atorvastatin 20 mg tablet 80 mg (4 x 20 mg) PO HS #30 tabs 06/20/19 Allergies Allergy/AdvReac Type Severity Reaction Status Date / Time No Known Allergies Allergy Verified 05/21/25 01:32 Review of Systems Review of Systems Systems Reviewed: All systems reviewed, normal except as documented Past Medical History Past Medical History NEUROLOGIC: Positive Neurological Disorders CARDIAC: Positive Cardiac Disorders (8 stents), Atrial Fibrillation, Coronary Artery Disease, Hypercholesterolemia, Congestive Heart Failure, Edema and Hypertension GASTROINTESTINAL: Positive Gastrointestinal Disorders Surgical History SURGICAL: Positive Cardiac Surgery and Coronary Stent Social History SUBSTANCE USE: other (Remote history of polysubstance abuse. Did eat some marijuana laced gummy bears Recently) ED Exam Narrative Physical exam: GEN. APPEARANCE: The patient is alert awake oriented X-3 writhing in pain on gurney, in moderate to severe distress. Patient has good eye contact. Patient is cooperative. VITALS: All vitals were reviewed and the pulse ox is 97%, which is normal according to my interpretation HEENT: Normocephalic, atraumatic and nontender. Pupils are equal and reactive. Oral mucosa is moist. NECK: Supple, nontender, no meningismus, no JVD. There is no thyromegaly and no lymphadenopathy. CHEST: Nontender on palpation no deformity and no crepitus. CARDIOVASCULAR: Heart regular rhythm, no murmur or gallop rub or extra beats. LUNGS: Clear to auscultation bilaterally with symmetrical chest rise. No laboring tachypnea or wheezing. No intercostal subcostal retraction. No rales and no rhonchi. ABDOMEN: Soft, distended, markedly tender at LLQ with localized peritioneal findings. There are no abnormal masses palpated. No pulsatile masses or bruits. Active and normal bowel sounds. EXTREMITIES: Normal inspection and palpation. No edema. No cyanosis. Patient is able to move all 4 extremities well SKIN: Warm and dry, no rashes noted. MUSCULOSKELETAL: No lumbar or midline bony tenderness. There is no CVA tenderness. No paraspinal muscle spasm or tenderness. NEURO: Cranial nerves II through XII grossly intact. There are no focal neurologic deficits noted. GCS is 15 PSYCHIATRIC: Patient is in normal mood and affect, cooperative. LYMPHATICS: No major lymphadenopathy noted. Course Quality Measures none Orders Category Date Time Status Insert IV NOW Care 05/21/25 03:08 Active Straight [In and Out Catheter] X1 Care 05/21/25 04:[address] abdomen pelvis wo con Stat Exams 05/21/25 01:55 Taken CBC Stat Lab 05/21/25 02:08 Completed CMP [Comprehensive Metabolic Panel] Stat Lab 05/21/25 02:08 Completed Lactate (Lactic Acid) Stat Lab 05/21/25 02:08 Completed Path Review Blood Smear Stat Lab 05/21/25 02:08 Completed Urinalysis, C/S if Indicated Stat Lab 05/21/25 04:39 Completed HYDROmorphone INJ [Dilaudid Inj] Med 05/21/25 03:28 Discontinued 1 mg IVP X1 ONE Ketorolac Inj [Toradol Inj] Med 05/21/25 03:13 Discontinued 30 mg IVP X1 ONE Morphine* Inj Med 05/21/25 01:55 Discontinued 4 mg IM X1 ONE Ondansetron Odt [Zofran Odt] Med 05/21/25 01:55 Discontinued 4 mg PO X1 ONE Sodium Chloride 0.9% 1000 ml [Ns] 1,000 ml Med 05/21/25 03:28 Discontinued IV 999 mls/hr Vital Signs Vital signs: Vital Signs Temperature 98.1 F 05/21/25 01:43 Pulse Rate 89 05/21/25 01:43 Respiratory Rate 20 05/21/25 01:43 Blood Pressure 163/92 H 05/21/25 01:43 Pulse Oximetry (%) 97 05/21/25 01:43 Oxygen Delivery Method Room Air 05/21/25 01:43 Abdominal Pain MDM MDM Narrative MDM Narrative:: Scribe Attestation: Vonda Trejo am scribing for and in the presence of Dr. Leong. Provider Notation: Although this document has been carefully reviewed, there may still be some phonetic and other typographical errors. These errors are purely grammatical due to imperfections in the software program and should not be construed in any way to compromise the substance of the patient's medical care during this visit. Patient presenting after having awoken with sudden LLQ abdominal pain at approximately 2:30 AM. Reports urinary frequency, although denies dysuria, gross hematuria, and reports nausea without emesis. Pain radiates to the left testicle. Laboratory markers, including CBC and serum chemistries demonstrated a WBC of 13, Hgb 7.3, and platelet count of 492. UA demonstrated 3+ hematuria without evidence of infection. Patient hydrated with normal saline, treated with low-dose narcotics/anti-emetics, in addition to NSAIDS with moderate improvement. CT scan of abdomen pelvis demonstrates a 3 mm stone of UPJ with mild hydronephrosis. Also a question of ? acute cholecystitis. LFT's completely normal. Tenderness is clearly within the LLQ. Final diagnoses include Uretolithiasis with Hydronephrosis and recurrent anemia. Given patient's Hx of extensive Heart disease, will type and cross for 2 units of RBC and transfuse. Will likely discharge to home. General surgery F/U will be advised. Patient data External records reviewed:: [facility] previous records (Reviewed prior ED records from 03/11/25. Patient was seen for Chest pain. ) Clinical information provided by:: patient Social determinants that could affect healthcare access:: substance use Patient has the following chronic illnesses:: GI Bleed, HTN, CAD, A Fib, CHF How is presenting disease/condition affected by chronic disease/condition?: exacerbated by Evaluation data The following diagnostics were reviewed and interpreted by me:: lab results and radiology exam(s) Lab and/or radiology exams considered but not ordered:: None Interpretation Summary: RADIOLOGY Abdomen/Pelvis: Findings: The lung bases are clear. The liver, pancreas, spleen, and adrenals are unremarkable on this noncontrast study. Pericholecystic fat stranding. Left UPJ stone measuring 0.3 cm, the stone is not visible on the associate financial analyst image, mild hydronephrosis. No evidence of bowel obstruction. The appendix is within normal limits. There is no mesenteric or retroperitoneal adenopathy. The urinary bladder is unremarkable. There is no free fluid or free air. No acute fractures. Chronic disc disease at L5-S1. Lipoma in the third portion of the duodenum measures 3.0 cm. Impression: Left UPJ stone associated with hydronephrosis Probable acute cholecystitis. Duodenal lipoma. Medications / Prescriptions Medications or Prescriptions considered but not ordered:: None Medication administrations:: Medication Administration History Discontinued Medications Hydromorphone HCl (Hydromorphone Inj 2 Mg/Ml Vial) 1 mg IVP X1 ONE Stop: 05/21/25 03:29 Last Admin: 05/21/25 03:42 Dose: 1 mg Documented By: LEAH Sodium Chloride (Ns) 1,000 mls @ 999 mls/hr IV .Q1H1M ONE Stop: 05/21/25 04:28 Last Infusion: 05/21/25 05:04 Dose: Infused Documented By: Admin: 05/21/25 03:42 Dose: 999 mls/hr Documented By: LEAH Ketorolac Tromethamine (Ketorolac Inj 30 Mg/Ml Vial) 30 mg IVP X1 ONE Stop: 05/21/25 03:14 Last Admin: 05/21/25 03:23 Dose: 30 mg Documented By: LEAH Morphine Sulfate (Morphine Sulf Inj 4 Mg/Ml Vial) 4 mg IM X1 ONE Stop: 05/21/25 01:56 Last Admin: 05/21/25 02:05 Dose: 4 mg Documented By: LEAH Ondansetron HCl (Ondansetron Odt 4 Mg Tabrap) 4 mg PO X1 ONE; Protocol Stop: 05/21/25 01:56 Last Admin: 05/21/25 02:04 Dose: 4 mg Documented By: LEAH See above if any. Consultations Consultation(s) initiated? (list below): No Diagnosis Differential diagnosis abdominal pain: abdominal pain, calculus of kidney, small bowel obstruction and other (Pyelonephritis) Most likely diagnosis given after review of the tests above:: Uretolithiasis with Hydronephrosis and recurrent anemia Admission Indicated Admission indicated?: not indicated Explain why admission is indicated or not indicated:: Patient does not meet admission criteria. Admission Request Was there a request for admission?: No Disposition Plan Disposition Plan: Discharge Discharge Attestation Discharge Attestation: The patient and all family members were given an opportunity to ask questions and understood the discharge instructions. Discharge instructions specifically effects, indications for sooner follow up or return to the emergency department, and the expected course of current diagnosis. Patient condition: Stable Discharge Plan Plan Patient Disposition: HOME (Self Care) Prescriptions/Referrals Prescriptions/Med Rec: No Action clopidogrel 75 mg tablet 75 mg PO DAILY lisinopril 20 mg tablet 40 mg PO QDAY aspirin [Adult Aspirin Regimen] 81 mg tablet,delayed release (DR/EC) 81 mg PO QDAY Qty: 30 0RF atorvastatin 20 mg Tablet 80 mg PO HS Qty: 30 0RF metoprolol succinate 50 mg tablet extended release 24 hr 50 mg PO QDAY Patient Comments: TAKE 1 TABLET BY MOUTH EVERY DAY FOR 7 DAYS Referrals: Yoni Cardenas MD [Primary Care Provider, Family Practice] - In 1 week Problem List Clinical Impression: Ureterolithiasis, Hydronephrosis, Anemia Patient/Caregiver Discharge Instructions Print Language: Greek Stand Alone Forms: Joann Award Info., Patient Portal Info Letter
--- NOTE | 2025-05-21 03:27 | PRELIM_ITS ---
CT scan of the abdomen and pelvis without intravenous contrast (axial sections with sagittal and coronal reformats) May 21, 2025 0217 hours Clinical History: Left flank pain. Comparison: None available at the time of this report. Findings: The lung bases are clear. The liver, pancreas, spleen, and adrenals are unremarkable on this noncontrast study. Pericholecystic fat stranding. Left UPJ stone measuring 0.3 cm, the stone is not visible on the intranet support image, mild hydronephrosis. No evidence of bowel obstruction. The appendix is within normal limits. There is no mesenteric or retroperitoneal adenopathy. The urinary bladder is unremarkable. There is no free fluid or free air. No acute fractures. Chronic disc disease at L5-S1. Lipoma in the third portion of the duodenum measures 3.0 cm. Impression: Left UPJ stone associated with hydronephrosis Probable acute cholecystitis. Duodenal lipoma. Report Electronically Signed By: Jesse Stanley 05/21/2025 3:27:46 AM [EST]
[2025-05-21] MEDS: HYDROmorphone INJ 2 MG/ML VIAL 1 MG IVP (03:42)
[2025-05-21] MEDS: SODIUM CHLORIDE 0.9% 1000 ML 1,000 ML 999 ML IV (03:42)
[2025-05-21 04:56] LABS: Collection Type, Urine Clean Catch; Squamous Epithelial Cell,Urine 0 /hpf (0-5)
[2025-05-21 05:06] LABS: Bilirubin,Urine Negative (Negative); Blood,Urine 3+ (Negative); Clarity,Urine Clear (Clear/Hazy); Color,Urine Lt-Yellow (Lt Yel-Yel); Culture Indicated,Urine Not Indicated; Glucose, Urine Negative (Negative); Ketones,Urine 1+ (Negative); Leukocyte Esterase,Urine Negative (Negative); Nitrite,Urine Negative (Negative); PH,Urine 5.5 (5.0-7.0); Protein,Urine Trace (Neg - Trace); RBC,Urine 302 /hpf (0-3); Specific Gravity,Urine 1.017 (1.001-1.035); Transitional Epi Cells,Urine 18 /hpf (0-5); Urobilinogen,Urine Negative mg/dL (0.0-1.0); WBC,Urine 10 /hpf (0-5)
--- NOTE | 2025-05-21 05:07 | PC.NURSE ---
PROVIDER WAS MADE AWARE OF HEMOGLOBIN. PER PROVIDER IM MORE WORRIED ABOUT THE PAIN RELATED TO STONE
--- NOTE | 2025-05-21 12:27 | PD.EDADDENDU ---
Emergency Room Addendum Addendum Narrative: 0600: Care assumed from Dr. George, the previous shift emergency physician. Past medical, surgical, social and family history reviewed. Vitals and home medications reviewed. I will assume the care of the patient at this time, pending blood transfusion completion. Please refer to the emergency department record for history and examination from initial visit.?The following addendum documentation note is intended to reflect any pending information, findings, or radiology results not included in the patient?s initial chart. 1220: I was made aware by RN the patient had two units of PRBCs ordered and has only received 1 unit. State at this time the patient is refusing the second unit. Patient will sign out AGAINST MEDICAL ADVICE. I have personally explained to the patient that choosing to do so may result in permanent bodily harm or . The patient is alert, oriented and competent at this time. The patient states that they are aware of the serious risks as explained, but they continue to wish to leave against medical advice.
--- NOTE | 2025-05-21 12:29 | PC.NURSE ---
patient deciding to leave AMA no longer wanting to stay stated he was told he would be out of here by noon and if we start another blood transfusion hes going to be out by 4pm. encouraged patient to stay and informed him of risk if patient leaves verbalized understanding. patient is a [employer] 15 AAOx4 .
== END 2025-05-21 12:33 | disposition left against medical advice (07) ==
PROVIDERS: Physician Assistant; Emergency Provider Emergency Medicine; PCP Family Medicine
DX: N13.2 Hydronephrosis with renal and ureteral calculous obstruction (principal); D64.9 Anemia, unspecified; D17.5 Benign lipomatous neoplasm of intra-abdominal organs; I25.10 Atherosclerotic heart disease of native coronary artery without angina pectoris; Z95.5 Presence of coronary angioplasty implant and graft; I11.0 Hypertensive heart disease with heart failure; I50.9 Heart failure, unspecified; I48.91 Unspecified atrial fibrillation; F12.10 Cannabis abuse, uncomplicated
CPT/HCPCS: 36415; 36430; 51701; 74176; 80053; 81001; 83605; 85025; 86850; 86900; 86901; 86923; 96361; 96372; 96374; 96375; 99285; J1171; J1885; J2270; J7030; P9016; Q0162